=== PATIENT | female | born 1980 | race Caucasian/White ===

== ENCOUNTER 2017-02-08 08:57 | Inpatient (IN) | payer OTHER ==
[2017-02-08 09:33] VITALS: BMI 30.2
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
[2017-02-08] MEDS ORDERED: chlordiazePOXIDE HCL 25 MG CAPSULE PO PRN (15:57)
[2017-02-08] MEDS ORDERED: chlordiazePOXIDE HCL 25 MG CAPSULE PO ONE (15:57)
[2017-02-08] MEDS ORDERED: MAGNESIUM HYDROX 2400MG/30ML ORAL SUSPENSION 30 ML CUP PO PRN (15:57)
[2017-02-08] MEDS ORDERED: NICOTINE POLACRILEX 2 MG GUM BC PRN (15:57)
[2017-02-08] MEDS ORDERED: LOPERAMIDE HCL 2 MG CAPSULE PO PRN (15:57)
[2017-02-08] MEDS ORDERED: ACETAMINOPHEN 325 MG TABLET (FP) PO PRN (15:57)
[2017-02-08] MEDS ORDERED: hydrOXYzine PAMOATE 25 MG CAPSULE (FP) PO PRN (15:57)
[2017-02-08] MEDS ORDERED: MENTHOL/PHENOL 1 EACH UD MM PRN (15:57)
[2017-02-08] MEDS ORDERED: guaiFENesin/D-METHORPHAN HB 10 ML UNIT-DOSE CUPS PO PRN (15:57)
[2017-02-08] MEDS ORDERED: P-EPHED 60MG/TRIPROLIDI 2.5MG TABLET PO PRN (15:57)
[2017-02-08] MEDS ORDERED: MAGNESIUM CITRATE 300 ML BOTTLE PO PRN (15:57)
[2017-02-08] MEDS: chlordiazePOXIDE HCL 25 MG CAPSULE PO SCH ×2 (17:14→22:10)
[2017-02-08] MEDS: NICOTINE 14 MG/24 HOURS TOPICAL PATCH TD SCH (17:18)
[2017-02-08] MEDS: THIAMINE HCL 100 MG TABLET (FP) PO SCH (22:09)
[2017-02-08] MEDS: diphenhydrAMINE HCL 50 MG CAPSULE PO PRN (22:10)
[2017-02-09] MEDS: chlordiazePOXIDE HCL 25 MG CAPSULE PO SCH ×4 (05:16→22:23)
--- NOTE | 2017-02-09 07:40 | CONSULT ---
[facility] Psychiatric Consult - Data Date of interview: 02/09/17 Admission source: [facility] Identifying data: This is 36 years old female with no psychiatric hospitalization history intoxicated with: Alcohol, Cociane, Xanax nad Nicotine Substance Abuse History: - Smoking Cessation. Smoking history: Current every day smoker. Have you smoked in the past 12 months: Yes. Aproximately how many cigarettes per day: 3. Hx Chewing Tobacco Use: No. Initiated information on smoking cessation: Yes. - Substance & Tx. History. Hx Alcohol Use: Yes (VODKA/ BEER). Hx Substance Use: Yes (XANAX/COCAINE). Substance Use Type: Alcohol, Cocaine, Tranquilizers. Hx Substance Use Treatment: No (NEVER BEEN TO DETOX/ REHAB ). - Substances Abused. Cocaine. Route: Smoking. Frequency: Daily. Amount used: $200. Age of first use: 33. Date of Last Use: 02/08/17. Alcohol. Route: Oral. Frequency: Daily. Amount used: 6-7 beers. Age of first use: 36. Date of Last Use: 02/06/17. Alprazolam (Xanax). Route: Oral. Frequency: Daily. Amount used: 4mg. Age of first use: 35. Date of Last Use: 02/06/17 Medical History: Migrain Psychiatric History: Patient reports history of Bipolar disorder, reprots taking prior to admission: Lamictal 100mg poqd Physical/Sexual Abuse/Trauma History: Denies Additional Comment: Lamictal 100mg poqd Mental Status Exam - Mental Status Exam Alert and Oriented to: Person Cognitive Function: Fair Patient Appearance: Well Groomed Mood: Anxious Affect: Mood Congruent Patient Behavior: Cooperative Speech Pattern: Appropriate Voice Loudness: Normal Thought Process: Circumstantial Thought Disorder: Being Controlled Hallucinations: Denies Suicidal Ideation: Denies Homicidal Ideation: Denies Insight/Judgement: Fair Sleep: Difficulty falling asleep Muscle strength/Tone: Mild Hypotonicity Gait/Station: Shuffling Additional Comments: Lamictal 100mg poqd Psychiatric Findings - Problem List ([place] 1, 2,3) (1) Alcohol dependence with uncomplicated withdrawal Current Visit: Yes Status: Acute (2) Cocaine dependence, uncomplicated Current Visit: Yes Status: Acute (3) Nicotine dependence Current Visit: Yes Status: Acute (4) Bipolar disorder Current Visit: Yes Status: Acute - Initial Treatment Plan Initial Treatment Plan: Lamictal 100mg poqd
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
[2017-02-09 10:08] LABS: MCH 28.2 pg (25.7-33.7); MCHC 32.3 g/dl (32.0-36.0); MEAN CELL VOLUME 87.2 fl (80-96); MEAN PLT VOLUME 10.7 fl (7.5-11.1); PLATELET COUNT 308 K/MM3 (134-434); RDW 14.3 % (11.6-15.6); WHITE BLOOD COUNT 10.7 K/mm3 (4.0-10.0)
[2017-02-09 10:35] LABS: ALBUMIN 4.2 g/dl (3.4-5.0); ANION GAP 7 (8-16); CALCIUM 9.3 mg/dL (8.5-10.1); CO2 26 mmol/L (21-32); GLUCOSE,RANDOM 101 mg/dL (74-106)
[2017-02-09] MEDS: PRENATAL VITAMINS W/ FOLIC ACID TABLET (FP) PO SCH (10:35)
[2017-02-09] MEDS: IBUPROFEN 400 MG TABLET (FP) PO PRN (10:36)
[2017-02-09 10:41] LABS: ALK PHOS 84 U/L (45-117); BILIRUBIN,TOTAL 0.6 mg/dL (0.2-1.0); CREATININE 0.9 mg/dL (0.55-1.02); SGOT/AST 13 U/L (15-37); SGPT/ALT 18 U/L (12-78); TOT PROT 7.5 g/dl (6.4-8.2)
[2017-02-09] MEDS: NICOTINE 14 MG/24 HOURS TOPICAL PATCH TD SCH (11:02)
--- NOTE | 2017-02-09 11:34 | EKG ---
Test Reason : Blood Pressure : / mmHG Vent. Rate : 083 BPM Atrial Rate : 083 BPM P-R Int : 138 ms QRS Dur : 078 ms QT Int : 378 ms P-R-T Axes : 040 069 057 degrees QTc Int : 444 ms NORMAL SINUS RHYTHM NORMAL ECG NO PREVIOUS ECGS AVAILABLE Confirmed by KRISTEN LINDA, ELLIOTT ([id number]) on 02/09/2017 11:34:08 AM Referred By: Adiel Peguero Confirmed By:ELLIOTT PETERSON MD
[2017-02-09 11:47] LABS: SICKLE CELL SCREEN NEGATIVE (NEGATIVE)
[2017-02-09] MEDS ORDERED: PNEUMOC 13-VAL CONJ-DIP CRM/PF 0.5 ML DISP.SYRIN IM ONE (12:00)
[2017-02-09] MEDS ORDERED: PNEUMOCOCCAL 23 VACCINE 0.5 ML VIAL IM ONE (12:00)
[2017-02-09 12:14] LABS: HIV 1 & 2 AB NEGATIVE; HIV 1 AGp24 NEGATIVE
[2017-02-09] MEDS: SILVER SULFADIAZINE 1% TOP CREAM 50 GM JAR TP SCH ×2 (12:43→22:23)
[2017-02-09] MEDS: diphenhydrAMINE HCL 50 MG CAPSULE PO PRN (22:22)
[2017-02-09] MEDS: RANITIDINE HCL 150 MG TABLET (FP) PO SCH (22:23)
[2017-02-09] MEDS: THIAMINE HCL 100 MG TABLET (FP) PO SCH (22:23)
[2017-02-09] MEDS: lamoTRIgine 100 MG TABLET (FP) PO SCH (22:23)
[2017-02-10] MEDS: chlordiazePOXIDE HCL 25 MG CAPSULE PO SCH ×2 (05:14→10:36)
[2017-02-10] MEDS: MAG HYDROX/AL HYDROX/SIMETH 30 ML UNIT-DOSE CUP PO PRN (05:15)
[2017-02-10] MEDS: IBUPROFEN 400 MG TABLET (FP) PO PRN (05:15)
[2017-02-10 10:04] LABS: URINE APPEARANCE CLEAR; URINE BILIRUBIN NEGATIVE (NEGATIVE); URINE BLOOD NEGATIVE (NEGATIVE); URINE COLOR LTYELLOW; URINE GLUCOSE (UA) NEGATIVE (NEGATIVE); URINE KETONE NEGATIVE (NEGATIVE); URINE LEUK ESTERASE NEGATIVE (NEGATIVE); URINE NITRITE NEGATIVE (NEGATIVE); URINE PROTEIN NEGATIVE (NEGATIVE); URINE UROBILINOGEN NEGATIVE mg/dL (0.2-1.0)
[2017-02-10] MEDS: PRENATAL VITAMINS W/ FOLIC ACID TABLET (FP) PO SCH (10:36)
[2017-02-10] MEDS: SILVER SULFADIAZINE 1% TOP CREAM 50 GM JAR TP SCH ×2 (10:36→22:12)
[2017-02-10] MEDS: RANITIDINE HCL 150 MG TABLET (FP) PO SCH ×2 (10:36→22:10)
[2017-02-10] MEDS: NICOTINE 14 MG/24 HOURS TOPICAL PATCH TD SCH (10:37)
[2017-02-10] MEDS ORDERED: ALBUTEROL SO4 6.7 GM HFA INHALER IH PRN (11:38)
[2017-02-10] MEDS ORDERED: IBUPROFEN 400 MG TABLET (FP) PO PRN (11:57)
--- NOTE | 2017-02-10 11:57 | PN ---
S CIWA - CIWA Score Nausea/Vomitin-No Nausea/No Vomiting Muscle Tremors: 4-Moderate,w/Arms Extend Anxiety: 3 Agitation: 4-Moderately Restless Paroxysmal Sweats: 3 Orientation: 0-Oriented Tacttile Disturbances: 0-None Auditory Disturbances: 0-None Visual Disturbances: 0-None Headache: 0-None Present CIWA-Ar Total Score: 14 BHS Progress Note (SOAP) Subjective: interrupted sleep anxiety sweats shakes I have a very fishy/smelling vaginal odor and discharge back pain I need my asthma pump I suffer from migraine headaches Objective: 02/10/17 11:54 Vital Signs Temperature 98.8 F 02/10/17 10:02 Pulse Rate 83 02/10/17 10:02 Respiratory Rate 18 02/10/17 10:02 Blood Pressure 127/76 02/10/17 10:02 O2 Sat by Pulse Oximetry (%) Laboratory Tests 02/09/17 02/09/17 02/09/17 06:00 06:00 06:00 WBC 10.7 H RBC 4.51 Hgb 12.7 Hct 39.4 MCV 87.2 MCH 28.2 MCHC 32.3 RDW 14.3 Plt Count 308 MPV 10.7 Sickle Cell Screen Negative Sodium 140 Potassium 4.0 Chloride 107 Carbon Dioxide 26 Anion Gap 7 L BUN 15 Creatinine 0.9 Creat Clearance w eGFR > 60 Random Glucose 101 Calcium 9.3 Total Bilirubin 0.6 AST 13 L ALT 18 Alkaline Phosphatase 84 Total Protein 7.5 Albumin 4.2 Urine Color Urine Appearance Urine pH Urine Protein Urine Glucose (UA) Urine Ketones Urine Blood Urine Nitrite Urine Bilirubin Urine Urobilinogen Ur Leukocyte Esterase HIV 1&2 Antibody Screen Negative HIV P24 Antigen Negative 02/10/17 08:00 WBC RBC Hgb Hct MCV MCH MCHC RDW Plt Count MPV Sickle Cell Screen Sodium Potassium Chloride Carbon Dioxide Anion Gap BUN Creatinine Creat Clearance w eGFR Random Glucose Calcium Total Bilirubin AST ALT Alkaline Phosphatase Total Protein Albumin Urine Color Ltyellow Urine Appearance Clear Urine pH 6.0 Urine Protein Negative Urine Glucose (UA) Negative Urine Ketones Negative Urine Blood Negative Urine Nitrite Negative Urine Bilirubin Negative Urine Urobilinogen Negative Ur Leukocyte Esterase Negative HIV 1&2 Antibody Screen HIV P24 Antigen awake/alert ambulating no acute distress Assessment: 02/10/17 11:54 withdrawal sx Plan: continue detox increase fluids imetrex 50mg x one motrin 800mg prn lidocaine patch flagyl 500mg bid albuterol pump IH ordered
[2017-02-10] MEDS: metroNIDAZOLE 250 MG TABLET PO SCH ×2 (12:43→22:10)
[2017-02-10] MEDS: LIDOCAINE 5% TOPICAL PATCH TP SCH (12:43)
[2017-02-10] MEDS ORDERED: SUMAtriptan SUCCINATE 50 MG TABLET PO ONE (12:45)
[2017-02-10] MEDS: chlordiazePOXIDE 5 MG CAPSULE PO SCH ×2 (17:31→22:10)
[2017-02-10] MEDS: THIAMINE HCL 100 MG TABLET (FP) PO SCH (22:10)
[2017-02-10] MEDS: lamoTRIgine 100 MG TABLET (FP) PO SCH (22:10)
[2017-02-10] MEDS: LIDOCAINE PATCH REMOVAL MC SCH (22:11)
[2017-02-11] MEDS: diphenhydrAMINE HCL 50 MG CAPSULE PO PRN ×2 (00:38→22:23)
[2017-02-11] MEDS: chlordiazePOXIDE 5 MG CAPSULE PO SCH ×2 (05:31→10:47)
[2017-02-11] MEDS: PRENATAL VITAMINS W/ FOLIC ACID TABLET (FP) PO SCH (10:46)
[2017-02-11] MEDS: metroNIDAZOLE 250 MG TABLET PO SCH ×2 (10:46→22:21)
[2017-02-11] MEDS: RANITIDINE HCL 150 MG TABLET (FP) PO SCH ×2 (10:46→22:22)
[2017-02-11] MEDS: SILVER SULFADIAZINE 1% TOP CREAM 50 GM JAR TP SCH ×2 (10:47→22:22)
[2017-02-11] MEDS: NICOTINE 14 MG/24 HOURS TOPICAL PATCH TD SCH (10:47)
[2017-02-11] MEDS: LIDOCAINE 5% TOPICAL PATCH TP SCH (10:47)
--- NOTE | 2017-02-11 12:02 | PN ---
BHS Progress Note (SOAP) Subjective: interrupted sleep sweats Objective: 02/11/17 12:01 Vital Signs Temperature 98.8 F 02/11/17 10:37 Pulse Rate 95 H 02/11/17 10:37 Respiratory Rate 18 02/11/17 10:37 Blood Pressure 122/76 02/11/17 10:37 O2 Sat by Pulse Oximetry (%) awake/alert ambulating no acute distress Assessment: 02/11/17 12:02 withdrawal sx Plan: continue detox d/c in am
[2017-02-11] MEDS: MAG HYDROX/AL HYDROX/SIMETH 30 ML UNIT-DOSE CUP PO PRN (16:12)
[2017-02-11] MEDS: chlordiazePOXIDE HCL 10 MG CAPSULE PO SCH ×2 (17:21→22:21)
[2017-02-11] MEDS: THIAMINE HCL 100 MG TABLET (FP) PO SCH (22:21)
[2017-02-11] MEDS: lamoTRIgine 100 MG TABLET (FP) PO SCH (22:22)
[2017-02-11] MEDS: LIDOCAINE PATCH REMOVAL MC SCH (23:42)
[2017-02-12] MEDS: chlordiazePOXIDE HCL 10 MG CAPSULE PO SCH ×2 (07:02→10:18)
--- NOTE | 2017-02-12 10:05 | PN ---
S Progress Note (SOAP) Subjective: alert,no complaint,histoyr of fall this morning Objective: 02/12/17 10:03 Vital Signs Temperature 98.2 F 02/12/17 08:10 Pulse Rate 80 02/12/17 08:10 Respiratory Rate 18 02/12/17 08:10 Blood Pressure 107/56 02/12/17 08:10 O2 Sat by Pulse Oximetry (%) Assessment: 02/12/17 10:03 detox completed,no withdrawal symptom Plan: stable for discharge to rehab today,continue fall protocol 2 in rehab
--- NOTE | 2017-02-12 10:11 | DS ---
[facility] Detox Discharge Summary Admission Date: 02/08/17 Discharge Date: 02/12/17 - History Present History: Alcohol Dependence, Cocaine Dependence Additional Comments: follow up with [facility] as arrangement,continue fall protocol 2 in rehab Pertinent Past History: history of migraine bipolar disorder - Physical Exam Results Vital Signs: Vital Signs Temperature 98.2 F 02/12/17 08:10 Pulse Rate 80 02/12/17 08:10 Respiratory Rate 18 02/12/17 08:10 Blood Pressure 107/56 02/12/17 08:10 O2 Sat by Pulse Oximetry (%) Pertinent Admission Physical Exam Findings: withdrawal symptom - Treatment Hospital Course: Detox Protocol Followed, Detoxed Safely, Responded well, Discharged Condition Good, Rehab Referral Accepted Patient has Accepted a Rehab Referral to: c[facility] - Medication Discharge Medications: Ambulatory Orders Lamotrigine [LaMICtal -] 100 mg PO HS #30 tablet 02/09/17 - Diagnosis (1) Bipolar disorder Current Visit: Yes Status: Acute (2) Nicotine dependence Current Visit: Yes Status: Acute Qualifiers: Nicotine product type: cigarettes Substance use status: uncomplicated Qualified Code(s): F17.210 - Nicotine dependence, cigarettes, uncomplicated (3) Alcohol dependence with uncomplicated withdrawal Current Visit: Yes Status: Chronic (4) Cocaine dependence, uncomplicated Current Visit: Yes Status: Chronic (5) Hx of migraine headaches Current Visit: Yes Status: Chronic - AMA Did Patient Leave Against Medical Advice: No
[2017-02-12] MEDS: RANITIDINE HCL 150 MG TABLET (FP) PO SCH (10:15)
[2017-02-12] MEDS: metroNIDAZOLE 250 MG TABLET PO SCH (10:16)
[2017-02-12] MEDS: PRENATAL VITAMINS W/ FOLIC ACID TABLET (FP) PO SCH (10:16)
[2017-02-12] MEDS: SILVER SULFADIAZINE 1% TOP CREAM 50 GM JAR TP SCH (10:19)
[2017-02-12] MEDS: LIDOCAINE 5% TOPICAL PATCH TP SCH (10:19)
[2017-02-12] MEDS: NICOTINE 14 MG/24 HOURS TOPICAL PATCH TD SCH (10:19)
[2017-02-12 10:48] VITALS: BP 127/66; PULSE 78; TEMP 98.8
== END 2017-02-12 12:07 | disposition other institution (70) | DRG 774 ==
LOC: YASAS 08:57 → Y6N 13:36
PROVIDERS: ADMIT Internal Medicine; ATTEND Internal Medicine
PROC: HZ2ZZZZ Detoxification Services for Substance Abuse Treatment (ICD-10-PCS; principal; 2017-02-12)
DX: F10.230 Alcohol dependence with withdrawal, uncomplicated (principal); F14.20 Cocaine dependence, uncomplicated; F17.210 Nicotine dependence, cigarettes, uncomplicated; F31.9 Bipolar disorder, unspecified; G43.909 Migraine, unspecified, not intractable, without status migrainosus
CPT/HCPCS: 36415; 80053; 81003; 85027; 85660; 86593; 87389; 90732; 93005; 93010; G0009

== ENCOUNTER 2017-02-12 12:28 | Inpatient (IN) | payer OTHER ==
[2017-02-12] MEDS ORDERED: guaiFENesin/D-METHORPHAN HB 10 ML UNIT-DOSE CUPS PO PRN (13:30)
[2017-02-12] MEDS ORDERED: LOPERAMIDE HCL 2 MG CAPSULE PO PRN (13:30)
[2017-02-12] MEDS ORDERED: MAGNESIUM HYDROX 2400MG/30ML ORAL SUSPENSION 30 ML CUP PO PRN (13:30)
[2017-02-12] MEDS ORDERED: hydrOXYzine PAMOATE 50 MG CAPSULE (FP) PO PRN (13:30)
[2017-02-12] MEDS ORDERED: ACETAMINOPHEN 325 MG TABLET (FP) PO PRN (13:30)
[2017-02-12] MEDS ORDERED: MAG HYDROX/AL HYDROX/SIMETH 30 ML UNIT-DOSE CUP PO PRN (13:30)
[2017-02-12] MEDS ORDERED: P-EPHED 60MG/TRIPROLIDI 2.5MG TABLET PO PRN (13:30)
[2017-02-12] MEDS ORDERED: MAGNESIUM CITRATE 300 ML BOTTLE PO PRN (13:30)
[2017-02-12] MEDS ORDERED: IBUPROFEN 400 MG TABLET (FP) PO PRN (13:30)
[2017-02-12] MEDS: lamoTRIgine 100 MG TABLET (FP) PO SCH (21:26)
[2017-02-12] MEDS: LIDOCAINE PATCH REMOVAL MC SCH (21:26)
[2017-02-12] MEDS: metroNIDAZOLE 250 MG TABLET PO SCH (21:26)
[2017-02-12] MEDS: MIRTAZAPINE 15 MG TABLET (FP) PO SCH (21:27)
[2017-02-12] MEDS: QUEtiapine FUMARATE 100 MG TABLET (FP) PO SCH (21:27)
[2017-02-12] MEDS: SILVER SULFADIAZINE 1% TOP CREAM 50 GM JAR TP SCH (21:27)
[2017-02-12] MEDS: THIAMINE HCL 100 MG TABLET (FP) PO SCH (21:28)
[2017-02-12] MEDS: RANITIDINE HCL 150 MG TABLET (FP) PO SCH (21:28)
[2017-02-12] MEDS ORDERED: PATIENT'S OWN MEDICATION (NON-FORMULARY) (Metronidazole [Flagyl -] 500 MG) PO SCH (22:00)
[2017-02-12] MEDS ORDERED: diphenhydrAMINE HCL 50 MG CAPSULE PO PRN (22:00)
[2017-02-13] MEDS: metroNIDAZOLE 250 MG TABLET PO SCH ×2 (09:41→21:18)
[2017-02-13] MEDS: LIDOCAINE 5% TOPICAL PATCH TP SCH (09:41)
[2017-02-13] MEDS: PRENATAL VITAMINS W/ FOLIC ACID TABLET (FP) PO SCH (09:42)
[2017-02-13] MEDS: NICOTINE 14 MG/24 HOURS TOPICAL PATCH TD SCH (09:42)
[2017-02-13] MEDS: RANITIDINE HCL 150 MG TABLET (FP) PO SCH ×2 (09:42→21:19)
[2017-02-13] MEDS: SILVER SULFADIAZINE 1% TOP CREAM 50 GM JAR TP SCH ×2 (09:43→21:20)
[2017-02-13] MEDS ORDERED: LIDOCAINE 5% TOPICAL PATCH TP SCH (10:00)
[2017-02-13 17:19] VITALS: BMI 31.8
[2017-02-13] MEDS: QUEtiapine FUMARATE 100 MG TABLET (FP) PO SCH (21:18)
[2017-02-13] MEDS: lamoTRIgine 100 MG TABLET (FP) PO SCH (21:18)
[2017-02-13] MEDS: MIRTAZAPINE 15 MG TABLET (FP) PO SCH (21:19)
[2017-02-13] MEDS: THIAMINE HCL 100 MG TABLET (FP) PO SCH (21:19)
[2017-02-13] MEDS: LIDOCAINE PATCH REMOVAL MC SCH (21:20)
[2017-02-14] MEDS ORDERED: PT OWN MED DRAWER 7, Y5N ONE (08:26)
[2017-02-14] MEDS: NICOTINE 14 MG/24 HOURS TOPICAL PATCH TD SCH (09:58)
[2017-02-14] MEDS: metroNIDAZOLE 250 MG TABLET PO SCH ×2 (09:58→21:32)
[2017-02-14] MEDS: PRENATAL VITAMINS W/ FOLIC ACID TABLET (FP) PO SCH (09:58)
[2017-02-14] MEDS: SILVER SULFADIAZINE 1% TOP CREAM 50 GM JAR TP SCH ×2 (09:58→21:34)
[2017-02-14] MEDS: LIDOCAINE 5% TOPICAL PATCH TP SCH (09:58)
[2017-02-14] MEDS: RANITIDINE HCL 150 MG TABLET (FP) PO SCH ×2 (09:58→21:34)
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
--- NOTE | 2017-02-14 11:57 | PN ---
S Progress Note (SOAP) Subjective: c/o migraine headaches and requesting ensure - has lost 20 lbs and has headaches /migraine but nurse reports has not used tylenol or motrin. Objective: 02/14/17 11:53 Vital Signs - 8 hr 02/14/17 06:54 Temperature 98.1 F Pulse Rate 91 H Respiratory 18 Rate Blood Pressure 113/74 Assessment: 02/14/17 11:54 discussed healthy weight and eating habits, no need for ensure at this time. migraine, will use tylenol and motrin to test for efficacy, if not adequate will revisit. taking lidoderm patch for back pain will start naprosyn 500mg bid which may help with migraine Plan: f/u 1 week. will d/c asthma pump as she does not have asthma was used when she was using tobacco and illicit substances.
[2017-02-14] MEDS: GABAPENTIN 300 MG CAPSULE (FP) PO SCH ×2 (13:53→21:31)
[2017-02-14] MEDS: MAG HYDROX/AL HYDROX/SIMETH 30 ML UNIT-DOSE CUP PO SCH ×2 (15:39→18:30)
[2017-02-14] MEDS: NAPROXEN 500 MG TABLET (FP) PO SCH ×2 (15:39→21:32)
[2017-02-14] MEDS: PANTOPRAZOLE 40 MG TABLET (FP) PO SCH (15:42)
[2017-02-14] MEDS: THIAMINE HCL 100 MG TABLET (FP) PO SCH (21:31)
[2017-02-14] MEDS: QUEtiapine FUMARATE 100 MG TABLET (FP) PO SCH (21:31)
[2017-02-14] MEDS: MIRTAZAPINE 15 MG TABLET (FP) PO SCH (21:31)
[2017-02-14] MEDS: lamoTRIgine 100 MG TABLET (FP) PO SCH (21:32)
[2017-02-14] MEDS: LIDOCAINE PATCH REMOVAL MC SCH (21:33)
[2017-02-15] MEDS: MAG HYDROX/AL HYDROX/SIMETH 30 ML UNIT-DOSE CUP PO SCH ×4 (02:21→18:35)
[2017-02-15] MEDS: GABAPENTIN 300 MG CAPSULE (FP) PO SCH ×3 (06:49→21:48)
[2017-02-15] MEDS: PRENATAL VITAMINS W/ FOLIC ACID TABLET (FP) PO SCH (10:23)
[2017-02-15] MEDS: SILVER SULFADIAZINE 1% TOP CREAM 50 GM JAR TP SCH ×2 (10:23→21:50)
[2017-02-15] MEDS: metroNIDAZOLE 250 MG TABLET PO SCH ×2 (10:24→21:48)
[2017-02-15] MEDS: NAPROXEN 500 MG TABLET (FP) PO SCH ×2 (10:24→21:48)
[2017-02-15] MEDS: NICOTINE 14 MG/24 HOURS TOPICAL PATCH TD SCH (10:24)
[2017-02-15] MEDS: PANTOPRAZOLE 40 MG TABLET (FP) PO SCH (10:24)
[2017-02-15] MEDS: RANITIDINE HCL 150 MG TABLET (FP) PO SCH ×2 (10:24→21:48)
[2017-02-15] MEDS: LIDOCAINE 5% TOPICAL PATCH TP SCH (10:25)
[2017-02-15] MEDS: ALBUTEROL SO4 6.7 GM HFA INHALER IH PRN (13:31)
[2017-02-15] MEDS: QUEtiapine FUMARATE 100 MG TABLET (FP) PO SCH (21:48)
[2017-02-15] MEDS: MIRTAZAPINE 15 MG TABLET (FP) PO SCH (21:48)
[2017-02-15] MEDS: THIAMINE HCL 100 MG TABLET (FP) PO SCH (21:48)
[2017-02-15] MEDS: lamoTRIgine 100 MG TABLET (FP) PO SCH (21:48)
[2017-02-15] MEDS: LIDOCAINE PATCH REMOVAL MC SCH (21:50)
[2017-02-16] MEDS: MAG HYDROX/AL HYDROX/SIMETH 30 ML UNIT-DOSE CUP PO SCH (00:18)
[2017-02-16] MEDS ORDERED: MAG HYDROX/AL HYDROX/SIMETH 30 ML UNIT-DOSE CUP PO PRN (00:29)
[2017-02-16] MEDS: GABAPENTIN 300 MG CAPSULE (FP) PO SCH ×3 (06:30→21:40)
[2017-02-16] MEDS: NICOTINE 14 MG/24 HOURS TOPICAL PATCH TD SCH (10:18)
[2017-02-16] MEDS: PANTOPRAZOLE 40 MG TABLET (FP) PO SCH (10:19)
[2017-02-16] MEDS: SILVER SULFADIAZINE 1% TOP CREAM 50 GM JAR TP SCH ×2 (10:19→21:42)
[2017-02-16] MEDS: metroNIDAZOLE 250 MG TABLET PO SCH ×2 (10:19→21:40)
[2017-02-16] MEDS: PRENATAL VITAMINS W/ FOLIC ACID TABLET (FP) PO SCH (10:19)
[2017-02-16] MEDS: LIDOCAINE 5% TOPICAL PATCH TP SCH (10:20)
[2017-02-16] MEDS: RANITIDINE HCL 150 MG TABLET (FP) PO SCH ×2 (10:20→21:41)
[2017-02-16] MEDS: NAPROXEN 500 MG TABLET (FP) PO SCH ×2 (10:20→21:40)
[2017-02-16] MEDS: MENTHOL/PHENOL 1 EACH UD MM PRN (12:53)
[2017-02-16] MEDS: QUEtiapine FUMARATE 100 MG TABLET (FP) PO SCH (21:40)
[2017-02-16] MEDS: MIRTAZAPINE 15 MG TABLET (FP) PO SCH (21:40)
[2017-02-16] MEDS: lamoTRIgine 100 MG TABLET (FP) PO SCH (21:40)
[2017-02-16] MEDS: THIAMINE HCL 100 MG TABLET (FP) PO SCH (21:40)
[2017-02-16] MEDS: LIDOCAINE PATCH REMOVAL MC SCH (21:42)
[2017-02-17] MEDS: GABAPENTIN 300 MG CAPSULE (FP) PO SCH ×3 (06:13→21:33)
[2017-02-17] MEDS: LIDOCAINE 5% TOPICAL PATCH TP SCH (09:54)
[2017-02-17] MEDS: metroNIDAZOLE 250 MG TABLET PO SCH ×2 (09:54→21:33)
[2017-02-17] MEDS: NAPROXEN 500 MG TABLET (FP) PO SCH (09:55)
[2017-02-17] MEDS: PANTOPRAZOLE 40 MG TABLET (FP) PO SCH (09:55)
[2017-02-17] MEDS: RANITIDINE HCL 150 MG TABLET (FP) PO SCH ×2 (09:55→21:32)
[2017-02-17] MEDS: NICOTINE 14 MG/24 HOURS TOPICAL PATCH TD SCH (09:56)
[2017-02-17] MEDS: PRENATAL VITAMINS W/ FOLIC ACID TABLET (FP) PO SCH (09:56)
[2017-02-17] MEDS: SILVER SULFADIAZINE 1% TOP CREAM 50 GM JAR TP SCH ×2 (09:57→21:32)
[2017-02-17] MEDS: MENTHOL/PHENOL 1 EACH UD MM PRN (10:02)
[2017-02-17] MEDS ORDERED: hydrOXYzine PAMOATE 50 MG CAPSULE (FP) PO PRN (11:45)
--- NOTE | 2017-02-17 11:45 | PN ---
S Progress Note (SOAP) Subjective: c/o sore throat, dry mouth x 3 days, no relief from naprowen, denies fever rigor chills or cough or SOb Objective: 02/17/17 11:43 Vital Signs - 8 hr 02/17/17 06:44 Temperature 97.9 F Pulse Rate 80 Respiratory 18 Rate Blood Pressure 112/75 throat swab for c and s to be sent Assessment: 02/17/17 11:44 viral pharyngitis, r/o strep throat Plan: cont naproxen, water at bedside, requesting biotene from pharmacy, cont vistaril ,
[2017-02-17] MEDS ORDERED: LYTES/YERBA SANTA 240 ML BOTTLE MM SCH (12:30)
[2017-02-17] MEDS: LYTES/YERBA SANTA 240 ML BOTTLE MM SCH (17:45)
[2017-02-17] MEDS: THIAMINE HCL 100 MG TABLET (FP) PO SCH (21:32)
[2017-02-17] MEDS: QUEtiapine FUMARATE 100 MG TABLET (FP) PO SCH (21:33)
[2017-02-17] MEDS: lamoTRIgine 100 MG TABLET (FP) PO SCH (21:33)
[2017-02-17] MEDS: LIDOCAINE PATCH REMOVAL MC SCH (21:34)
[2017-02-17] MEDS: MIRTAZAPINE 15 MG TABLET (FP) PO SCH (21:34)
[2017-02-18] MEDS: GABAPENTIN 300 MG CAPSULE (FP) PO SCH ×3 (06:31→21:42)
[2017-02-18] MEDS ORDERED: PT OWN MED DRAWER 7, Y5N ONE ×3 (08:58→19:46)
[2017-02-18] MEDS: RANITIDINE HCL 150 MG TABLET (FP) PO SCH ×2 (10:30→21:42)
[2017-02-18] MEDS: metroNIDAZOLE 250 MG TABLET PO SCH ×2 (10:30→21:42)
[2017-02-18] MEDS: LIDOCAINE 5% TOPICAL PATCH TP SCH (10:30)
[2017-02-18] MEDS: PANTOPRAZOLE 40 MG TABLET (FP) PO SCH (10:30)
[2017-02-18] MEDS: PRENATAL VITAMINS W/ FOLIC ACID TABLET (FP) PO SCH (10:30)
[2017-02-18] MEDS: NICOTINE 14 MG/24 HOURS TOPICAL PATCH TD SCH (10:31)
[2017-02-18] MEDS: LYTES/YERBA SANTA 240 ML BOTTLE MM SCH ×3 (10:31→21:41)
[2017-02-18] MEDS: SILVER SULFADIAZINE 1% TOP CREAM 50 GM JAR TP SCH ×2 (10:32→21:44)
--- NOTE | 2017-02-18 14:37 | HP ---
Psychiatrist Admission - Data Date of interview: 02/18/17 Admission source: [address] [place] [address] Identifying data: This is the first admission to [address] [place] [address] for this 36 years old H single mother of 5 (youngest daughter 15 yo resides with her father).patient resides alone (renting room),supported by PA. Medical History: Low back pain,Migraine headache. Vital Signs: Vital Signs - 24 hr 02/18/17 02/18/17 02/18/17 00:30 03:30 07:05 Temperature 97.9 F Pulse Rate 81 Respiratory 18 18 18 Rate Blood Pressure 130/78 Allergies/Adverse Reactions: Allergies Allergy/AdvReac Type Severity Reaction Status Date / Time No Known Allergies Allergy Verified 02/08/17 13:46 - Substance Abuse/Tx History Hx Alcohol Use: Yes Hx Substance Use: Yes Substance Use Type: Alcohol, Cocaine Hx Substance Use Treatment: Yes - Admission Criteria Previous failed treatment: Yes Poor recovery environment: Yes Comorbidities: Yes Lacks judgement: Yes Mental Status Exam - Mental Status Exam Alert and Oriented to: Time, Place, Person Cognitive Function: Grossly Intact Patient Appearance: Well Groomed Mood: Anxious Affect: Mood Congruent, Labile Patient Behavior: Cooperative Speech Pattern: Clear Voice Loudness: Normal Thought Process: Goal Oriented Thought Disorder: Not Present Hallucinations: Denies Suicidal Ideation: Denies Homicidal Ideation: Denies Insight/Judgement: Fair Sleep: Fair Appetite: Fair Muscle strength/Tone: Normal Gait/Station: Normal Psychiatric Findings - Problem List ([place] 1, 2,3) (1) Drug-induced mood disorder Current Visit: Yes Status: Chronic (2) Bipolar disorder Current Visit: Yes Status: Chronic (3) Nicotine dependence Current Visit: Yes Status: Chronic Qualifiers: Nicotine product type: cigarettes Substance use status: uncomplicated Qualified Code(s): F17.210 - Nicotine dependence, cigarettes, uncomplicated (4) Hx of migraine headaches Current Visit: Yes Status: Chronic - Initial Treatment Plan Initial Treatment Plan: Will monitor progress.
[2017-02-18] MEDS: COLLOIDAL OATMEAL 1 BAR EACH TP PRN (16:01)
[2017-02-18] MEDS: THIAMINE HCL 100 MG TABLET (FP) PO SCH (21:42)
[2017-02-18] MEDS: lamoTRIgine 100 MG TABLET (FP) PO SCH (21:42)
[2017-02-18] MEDS: QUEtiapine FUMARATE 100 MG TABLET (FP) PO SCH (21:42)
[2017-02-18] MEDS: LIDOCAINE PATCH REMOVAL MC SCH (22:19)
[2017-02-19] MEDS ORDERED: PT OWN MED DRAWER 7, Y5N ONE ×2 (06:01→07:23)
[2017-02-19] MEDS: GABAPENTIN 300 MG CAPSULE (FP) PO SCH ×3 (06:59→21:46)
[2017-02-19] MEDS: LYTES/YERBA SANTA 240 ML BOTTLE MM SCH ×3 (06:59→21:48)
[2017-02-19] MEDS: PANTOPRAZOLE 40 MG TABLET (FP) PO SCH (10:04)
[2017-02-19] MEDS: RANITIDINE HCL 150 MG TABLET (FP) PO SCH ×2 (10:04→21:49)
[2017-02-19] MEDS: metroNIDAZOLE 250 MG TABLET PO SCH ×2 (10:04→21:47)
[2017-02-19] MEDS: PRENATAL VITAMINS W/ FOLIC ACID TABLET (FP) PO SCH (10:04)
[2017-02-19] MEDS: LIDOCAINE 5% TOPICAL PATCH TP SCH (10:05)
[2017-02-19] MEDS: SILVER SULFADIAZINE 1% TOP CREAM 50 GM JAR TP SCH ×2 (10:05→21:49)
[2017-02-19] MEDS: NICOTINE 14 MG/24 HOURS TOPICAL PATCH TD SCH (10:05)
[2017-02-19] MEDS: QUEtiapine FUMARATE 100 MG TABLET (FP) PO SCH (21:46)
[2017-02-19] MEDS: lamoTRIgine 100 MG TABLET (FP) PO SCH (21:46)
[2017-02-19] MEDS: THIAMINE HCL 100 MG TABLET (FP) PO SCH (21:46)
[2017-02-19] MEDS: LIDOCAINE PATCH REMOVAL MC SCH (21:47)
[2017-02-20] MEDS ORDERED: PT OWN MED DRAWER 7, Y5N ONE ×3 (05:35→14:19)
[2017-02-20] MEDS: LYTES/YERBA SANTA 240 ML BOTTLE MM SCH ×3 (06:30→21:32)
[2017-02-20] MEDS: GABAPENTIN 300 MG CAPSULE (FP) PO SCH ×3 (06:30→21:32)
[2017-02-20] MEDS: PANTOPRAZOLE 40 MG TABLET (FP) PO SCH (10:11)
[2017-02-20] MEDS: RANITIDINE HCL 150 MG TABLET (FP) PO SCH ×2 (10:11→21:32)
[2017-02-20] MEDS: SILVER SULFADIAZINE 1% TOP CREAM 50 GM JAR TP SCH ×2 (10:11→21:33)
[2017-02-20] MEDS: PRENATAL VITAMINS W/ FOLIC ACID TABLET (FP) PO SCH (10:11)
[2017-02-20] MEDS: LIDOCAINE 5% TOPICAL PATCH TP SCH (10:13)
[2017-02-20] MEDS: NICOTINE 14 MG/24 HOURS TOPICAL PATCH TD SCH (10:13)
[2017-02-20] MEDS: lamoTRIgine 100 MG TABLET (FP) PO SCH (21:32)
[2017-02-20] MEDS: QUEtiapine FUMARATE 100 MG TABLET (FP) PO SCH (21:32)
[2017-02-20] MEDS: THIAMINE HCL 100 MG TABLET (FP) PO SCH (21:32)
[2017-02-20] MEDS: LIDOCAINE PATCH REMOVAL MC SCH (21:33)
[2017-02-21] MEDS ORDERED: PT OWN MED DRAWER 7, Y5N ONE ×2 (03:26→20:21)
[2017-02-21] MEDS: GABAPENTIN 300 MG CAPSULE (FP) PO SCH ×3 (06:16→21:34)
[2017-02-21] MEDS: LYTES/YERBA SANTA 240 ML BOTTLE MM SCH ×3 (06:16→22:18)
[2017-02-21] MEDS: LIDOCAINE 5% TOPICAL PATCH TP SCH (10:06)
[2017-02-21] MEDS: PANTOPRAZOLE 40 MG TABLET (FP) PO SCH (10:07)
[2017-02-21] MEDS: RANITIDINE HCL 150 MG TABLET (FP) PO SCH ×2 (10:07→21:34)
[2017-02-21] MEDS: PRENATAL VITAMINS W/ FOLIC ACID TABLET (FP) PO SCH (10:07)
[2017-02-21] MEDS: NICOTINE 14 MG/24 HOURS TOPICAL PATCH TD SCH (10:07)
[2017-02-21] MEDS: SILVER SULFADIAZINE 1% TOP CREAM 50 GM JAR TP SCH ×2 (10:08→21:35)
[2017-02-21] MEDS: QUEtiapine FUMARATE 100 MG TABLET (FP) PO SCH (21:34)
[2017-02-21] MEDS: lamoTRIgine 100 MG TABLET (FP) PO SCH (21:34)
[2017-02-21] MEDS: THIAMINE HCL 100 MG TABLET (FP) PO SCH (21:34)
[2017-02-21] MEDS: LIDOCAINE PATCH REMOVAL MC SCH (22:18)
[2017-02-22] MEDS: GABAPENTIN 300 MG CAPSULE (FP) PO SCH ×3 (06:21→21:32)
[2017-02-22] MEDS: LYTES/YERBA SANTA 240 ML BOTTLE MM SCH ×3 (06:21→21:32)
[2017-02-22] MEDS ORDERED: PT OWN MED DRAWER 7, Y5N ONE ×3 (06:38→14:53)
[2017-02-22] MEDS: NICOTINE 14 MG/24 HOURS TOPICAL PATCH TD SCH (10:27)
[2017-02-22] MEDS: LIDOCAINE 5% TOPICAL PATCH TP SCH (10:27)
[2017-02-22] MEDS: PRENATAL VITAMINS W/ FOLIC ACID TABLET (FP) PO SCH (10:27)
[2017-02-22] MEDS: PANTOPRAZOLE 40 MG TABLET (FP) PO SCH (10:27)
[2017-02-22] MEDS: RANITIDINE HCL 150 MG TABLET (FP) PO SCH ×2 (10:27→21:32)
[2017-02-22] MEDS: SILVER SULFADIAZINE 1% TOP CREAM 50 GM JAR TP SCH ×2 (10:28→21:33)
[2017-02-22] MEDS: ALBUTEROL SO4 6.7 GM HFA INHALER IH PRN (10:29)
[2017-02-22] MEDS: BENZOYL PEROXIDE 5% 60 GM GEL..GRAM. TP SCH ×2 (14:52→21:31)
[2017-02-22] MEDS: QUEtiapine FUMARATE 100 MG TABLET (FP) PO SCH (21:31)
[2017-02-22] MEDS: THIAMINE HCL 100 MG TABLET (FP) PO SCH (21:32)
[2017-02-22] MEDS: lamoTRIgine 100 MG TABLET (FP) PO SCH (21:32)
[2017-02-22] MEDS: LIDOCAINE PATCH REMOVAL MC SCH (21:33)
[2017-02-23] MEDS: LYTES/YERBA SANTA 240 ML BOTTLE MM SCH ×3 (06:21→21:32)
[2017-02-23] MEDS: GABAPENTIN 300 MG CAPSULE (FP) PO SCH ×3 (06:21→21:31)
[2017-02-23] MEDS ORDERED: PT OWN MED DRAWER 7, Y5N ONE (08:29)
[2017-02-23] MEDS: BENZOYL PEROXIDE 5% 60 GM GEL..GRAM. TP SCH ×2 (10:16→21:32)
[2017-02-23] MEDS: SILVER SULFADIAZINE 1% TOP CREAM 50 GM JAR TP SCH ×2 (10:16→21:32)
[2017-02-23] MEDS: PRENATAL VITAMINS W/ FOLIC ACID TABLET (FP) PO SCH (10:16)
[2017-02-23] MEDS: LIDOCAINE 5% TOPICAL PATCH TP SCH (10:17)
[2017-02-23] MEDS: RANITIDINE HCL 150 MG TABLET (FP) PO SCH ×2 (10:17→21:31)
[2017-02-23] MEDS: PANTOPRAZOLE 40 MG TABLET (FP) PO SCH (10:17)
[2017-02-23] MEDS: NAPROXEN 500 MG TABLET (FP) PO PRN ×2 (13:21→21:31)
[2017-02-23] MEDS: lamoTRIgine 25 MG TABLET PO SCH ×2 (17:20→21:31)
[2017-02-23] MEDS: QUEtiapine FUMARATE 100 MG TABLET (FP) PO SCH (21:31)
[2017-02-23] MEDS: THIAMINE HCL 100 MG TABLET (FP) PO SCH (21:31)
[2017-02-23] MEDS: LIDOCAINE PATCH REMOVAL MC SCH (21:32)
[2017-02-24] MEDS: LYTES/YERBA SANTA 240 ML BOTTLE MM SCH ×3 (06:16→21:22)
[2017-02-24] MEDS: GABAPENTIN 300 MG CAPSULE (FP) PO SCH ×3 (06:16→21:20)
[2017-02-24] MEDS: lamoTRIgine 25 MG TABLET PO SCH ×2 (09:54→21:21)
[2017-02-24] MEDS: RANITIDINE HCL 150 MG TABLET (FP) PO SCH ×2 (09:54→21:21)
[2017-02-24] MEDS: BENZOYL PEROXIDE 5% 60 GM GEL..GRAM. TP SCH ×2 (09:54→21:23)
[2017-02-24] MEDS: PRENATAL VITAMINS W/ FOLIC ACID TABLET (FP) PO SCH (09:54)
[2017-02-24] MEDS: PANTOPRAZOLE 40 MG TABLET (FP) PO SCH (09:55)
[2017-02-24] MEDS: LIDOCAINE 5% TOPICAL PATCH TP SCH (09:55)
[2017-02-24] MEDS: SILVER SULFADIAZINE 1% TOP CREAM 50 GM JAR TP SCH ×2 (09:55→21:22)
[2017-02-24] MEDS: THIAMINE HCL 100 MG TABLET (FP) PO SCH (21:20)
[2017-02-24] MEDS: QUEtiapine FUMARATE 100 MG TABLET (FP) PO SCH (21:21)
[2017-02-24] MEDS: LIDOCAINE PATCH REMOVAL MC SCH (21:22)
[2017-02-25] MEDS: GABAPENTIN 300 MG CAPSULE (FP) PO SCH ×3 (06:19→21:29)
[2017-02-25] MEDS: LYTES/YERBA SANTA 240 ML BOTTLE MM SCH ×3 (06:20→21:29)
[2017-02-25] MEDS ORDERED: PT OWN MED DRAWER 7, Y5N ONE (08:54)
[2017-02-25] MEDS: lamoTRIgine 25 MG TABLET PO SCH ×2 (10:20→21:29)
[2017-02-25] MEDS: RANITIDINE HCL 150 MG TABLET (FP) PO SCH ×2 (10:20→21:29)
[2017-02-25] MEDS: PRENATAL VITAMINS W/ FOLIC ACID TABLET (FP) PO SCH (10:20)
[2017-02-25] MEDS: PANTOPRAZOLE 40 MG TABLET (FP) PO SCH (10:20)
[2017-02-25] MEDS: SILVER SULFADIAZINE 1% TOP CREAM 50 GM JAR TP SCH ×2 (10:20→21:31)
[2017-02-25] MEDS: BENZOYL PEROXIDE 5% 60 GM GEL..GRAM. TP SCH ×2 (10:20→21:30)
[2017-02-25] MEDS: LIDOCAINE 5% TOPICAL PATCH TP SCH (10:21)
[2017-02-25] MEDS: COLLOIDAL OATMEAL 1 BAR EACH TP PRN (10:44)
[2017-02-25] MEDS: THIAMINE HCL 100 MG TABLET (FP) PO SCH (21:29)
[2017-02-25] MEDS: QUEtiapine FUMARATE 100 MG TABLET (FP) PO SCH (21:29)
[2017-02-25] MEDS: LIDOCAINE PATCH REMOVAL MC SCH (21:30)
[2017-02-26] MEDS ORDERED: PT OWN MED DRAWER 7, Y5N ONE ×3 (03:24→19:34)
[2017-02-26] MEDS: LYTES/YERBA SANTA 240 ML BOTTLE MM SCH ×3 (06:30→21:27)
[2017-02-26] MEDS: GABAPENTIN 300 MG CAPSULE (FP) PO SCH ×3 (06:30→21:28)
[2017-02-26] MEDS: BENZOYL PEROXIDE 5% 60 GM GEL..GRAM. TP SCH ×2 (10:08→21:27)
[2017-02-26] MEDS: lamoTRIgine 25 MG TABLET PO SCH ×2 (10:08→21:29)
[2017-02-26] MEDS: RANITIDINE HCL 150 MG TABLET (FP) PO SCH ×2 (10:09→21:29)
[2017-02-26] MEDS: PANTOPRAZOLE 40 MG TABLET (FP) PO SCH (10:09)
[2017-02-26] MEDS: PRENATAL VITAMINS W/ FOLIC ACID TABLET (FP) PO SCH (10:09)
[2017-02-26] MEDS: LIDOCAINE 5% TOPICAL PATCH TP SCH (10:10)
[2017-02-26] MEDS: SILVER SULFADIAZINE 1% TOP CREAM 50 GM JAR TP SCH ×2 (10:10→21:31)
[2017-02-26] MEDS: NAPROXEN 500 MG TABLET (FP) PO PRN ×2 (12:45→22:06)
[2017-02-26] MEDS: THIAMINE HCL 100 MG TABLET (FP) PO SCH (21:28)
[2017-02-26] MEDS: QUEtiapine FUMARATE 100 MG TABLET (FP) PO SCH (21:28)
[2017-02-26] MEDS: LIDOCAINE PATCH REMOVAL MC SCH (21:29)
[2017-02-27] MEDS ORDERED: PT OWN MED DRAWER 7, Y5N ONE ×2 (03:10→19:18)
[2017-02-27] MEDS: LYTES/YERBA SANTA 240 ML BOTTLE MM SCH ×3 (06:13→21:19)
[2017-02-27] MEDS: GABAPENTIN 300 MG CAPSULE (FP) PO SCH ×3 (06:13→21:21)
[2017-02-27] MEDS: BENZOYL PEROXIDE 5% 60 GM GEL..GRAM. TP SCH ×2 (09:54→21:20)
[2017-02-27] MEDS: PANTOPRAZOLE 40 MG TABLET (FP) PO SCH (09:55)
[2017-02-27] MEDS: lamoTRIgine 25 MG TABLET PO SCH ×2 (09:55→21:20)
[2017-02-27] MEDS: LIDOCAINE 5% TOPICAL PATCH TP SCH (09:56)
[2017-02-27] MEDS: PRENATAL VITAMINS W/ FOLIC ACID TABLET (FP) PO SCH (09:56)
[2017-02-27] MEDS: RANITIDINE HCL 150 MG TABLET (FP) PO SCH ×2 (09:56→21:21)
[2017-02-27] MEDS: SILVER SULFADIAZINE 1% TOP CREAM 50 GM JAR TP SCH ×2 (09:57→21:22)
[2017-02-27] MEDS: NAPROXEN 500 MG TABLET (FP) PO PRN (21:20)
[2017-02-27] MEDS: THIAMINE HCL 100 MG TABLET (FP) PO SCH (21:21)
[2017-02-27] MEDS: QUEtiapine FUMARATE 100 MG TABLET (FP) PO SCH (21:21)
[2017-02-27] MEDS: LIDOCAINE PATCH REMOVAL MC SCH (21:22)
[2017-02-28] MEDS: GABAPENTIN 300 MG CAPSULE (FP) PO SCH ×3 (06:24→21:28)
[2017-02-28] MEDS: LYTES/YERBA SANTA 240 ML BOTTLE MM SCH ×3 (06:24→21:30)
[2017-02-28] MEDS: LIDOCAINE 5% TOPICAL PATCH TP SCH (10:18)
[2017-02-28] MEDS: lamoTRIgine 25 MG TABLET PO SCH ×2 (10:18→21:28)
[2017-02-28] MEDS: PANTOPRAZOLE 40 MG TABLET (FP) PO SCH (10:18)
[2017-02-28] MEDS: RANITIDINE HCL 150 MG TABLET (FP) PO SCH ×2 (10:18→21:28)
[2017-02-28] MEDS: BENZOYL PEROXIDE 5% 60 GM GEL..GRAM. TP SCH ×2 (10:18→21:30)
[2017-02-28] MEDS: SILVER SULFADIAZINE 1% TOP CREAM 50 GM JAR TP SCH ×2 (10:18→21:31)
[2017-02-28] MEDS: PRENATAL VITAMINS W/ FOLIC ACID TABLET (FP) PO SCH (10:18)
[2017-02-28] MEDS: NAPROXEN 500 MG TABLET (FP) PO PRN ×2 (10:19→21:29)
[2017-02-28] MEDS ORDERED: PT OWN MED DRAWER 7, Y5N ONE (13:55)
[2017-02-28] MEDS: QUEtiapine FUMARATE 100 MG TABLET (FP) PO SCH (21:27)
[2017-02-28] MEDS: THIAMINE HCL 100 MG TABLET (FP) PO SCH (21:27)
[2017-02-28] MEDS: LIDOCAINE PATCH REMOVAL MC SCH (21:30)
[2017-03-01] MEDS ORDERED: PT OWN MED DRAWER 7, Y5N ONE ×3 (05:59→13:25)
[2017-03-01] MEDS: LYTES/YERBA SANTA 240 ML BOTTLE MM SCH ×3 (06:38→21:28)
[2017-03-01] MEDS: GABAPENTIN 300 MG CAPSULE (FP) PO SCH ×3 (06:38→21:27)
[2017-03-01] MEDS: LIDOCAINE 5% TOPICAL PATCH TP SCH (10:21)
[2017-03-01] MEDS: PRENATAL VITAMINS W/ FOLIC ACID TABLET (FP) PO SCH (10:22)
[2017-03-01] MEDS: RANITIDINE HCL 150 MG TABLET (FP) PO SCH ×2 (10:22→21:27)
[2017-03-01] MEDS: PANTOPRAZOLE 40 MG TABLET (FP) PO SCH (10:22)
[2017-03-01] MEDS: lamoTRIgine 25 MG TABLET PO SCH ×2 (10:23→21:27)
[2017-03-01] MEDS: NAPROXEN 500 MG TABLET (FP) PO PRN ×2 (10:24→20:05)
[2017-03-01] MEDS: SILVER SULFADIAZINE 1% TOP CREAM 50 GM JAR TP SCH ×2 (10:25→21:28)
[2017-03-01] MEDS: BENZOYL PEROXIDE 5% 60 GM GEL..GRAM. TP SCH ×2 (10:25→21:26)
[2017-03-01] MEDS: QUEtiapine FUMARATE 100 MG TABLET (FP) PO SCH (21:27)
[2017-03-01] MEDS: THIAMINE HCL 100 MG TABLET (FP) PO SCH (21:27)
[2017-03-01] MEDS: LIDOCAINE PATCH REMOVAL MC SCH (21:29)
[2017-03-02] MEDS: LYTES/YERBA SANTA 240 ML BOTTLE MM SCH (06:21)
[2017-03-02] MEDS: GABAPENTIN 300 MG CAPSULE (FP) PO SCH (06:21)
[2017-03-02 07:11] VITALS: BP 116/78; PULSE 85; TEMP 97.9
[2017-03-02] MEDS: lamoTRIgine 25 MG TABLET PO SCH (09:24)
[2017-03-02] MEDS: PRENATAL VITAMINS W/ FOLIC ACID TABLET (FP) PO SCH (09:24)
[2017-03-02] MEDS: PANTOPRAZOLE 40 MG TABLET (FP) PO SCH (09:24)
[2017-03-02] MEDS: NAPROXEN 500 MG TABLET (FP) PO PRN (09:25)
[2017-03-02] MEDS: BENZOYL PEROXIDE 5% 60 GM GEL..GRAM. TP SCH (09:48)
[2017-03-02] MEDS: LIDOCAINE 5% TOPICAL PATCH TP SCH (09:48)
[2017-03-02] MEDS: RANITIDINE HCL 150 MG TABLET (FP) PO SCH (09:49)
[2017-03-02] MEDS: SILVER SULFADIAZINE 1% TOP CREAM 50 GM JAR TP SCH (09:49)
--- NOTE | 2017-03-02 10:00 | PN ---
Psychiatric Progress Note Vital Signs: Vital Signs Period Temp Pulse Resp BP Sys/Glover Pulse Ox Last 24 Hr 97.9 F 85 18-18 116/78 Date of Session: 03/02/17 Chief Complaint:: Discharge visit HPI: Patient addressed Alcohol and Cocaine dependence comorbid with Bipolar Disorder. Current Medications: Active Medications Generic Name Dose Route Start Last Admin Trade Name Freq PRN Reason Stop Dose Admin Acetaminophen 650 mg 02/12/17 13:30 02/22/17 08:55 Tylenol - PO 650 mg Q4H PRN Administration FEVER OR PAIN Al Hydroxide/Mg Hydroxide 30 ml 02/16/17 00:29 Mylanta Oral Suspension - PO Q6H PRN Albuterol Sulfate 2 puff 02/15/17 13:02 02/22/17 10:29 Ventolin Hfa Inhaler - IH 2 puff Q4H PRN Administration SHORT OF BREATH/WHEEZING Benzoyl Peroxide 1 applic 02/22/17 11:30 03/01/17 21:26 Benzoyl Peroxide 5% Gel - TP Not Given BID LEWIS Colloidal Oatmeal 1 applic 02/18/17 10:52 02/25/17 10:44 Aveeno Soap - TP 1 bar DAILY PRN Administration HYGEINE Eucalyptus/Menthol/Phenol/Sorbitol 1 each 02/12/17 13:30 02/17/17 10:02 Cepastat Lozenge - MM 1 each Q4H PRN Administration SORE THROAT Gabapentin 300 mg 02/14/17 14:00 03/02/17 06:21 Neurontin - PO 300 mg TID LEWIS Administration Guaifenesin 10 ml 02/12/17 13:30 Robitussin Dm - PO Q6H PRN COUGH Hydroxyzine Pamoate 50 mg 02/17/17 11:45 Vistaril - PO Q6H PRN ANXIETY Lamotrigine 50 mg 02/23/17 16:15 03/02/17 09:24 Lamictal - PO 50 mg BID LEWIS Administration Lidocaine 1 patch 02/13/17 10:00 03/01/17 10:21 Lidoderm Patch - TP 1 patch DAILY LEWIS Administration Loperamide HCl 4 mg 02/12/17 13:30 Imodium - PO Q6H PRN DIARRHEA Magnesium Hydroxide 30 ml 02/12/17 13:30 Milk Of Magnesia - PO DAILY PRN CONSTIPATION Miscellaneous 1 each 02/12/17 22:00 03/01/17 21:29 Lidoderm Patch Removal MC 1 each DAILY@2200 LEWIS Administration Naproxen 500 mg 02/17/17 11:48 03/02/17 09:25 Naprosyn - PO 500 mg BID PRN Administration PAIN Pantoprazole Sodium 40 mg 02/14/17 15:00 03/02/17 09:24 Protonix - PO 40 mg DAILY LEWIS Administration Multivit/Folic Acid/Iron 1 tab 02/13/17 10:00 03/02/17 09:24 Vitamins (Sjr) - PO 1 tab DAILY LEWIS Administration Quetiapine Fumarate 300 mg 02/12/17 22:00 03/01/17 21:27 Seroquel - PO 300 mg HS LEWIS Administration Ranitidine HCl 150 mg 02/12/17 22:00 03/01/17 21:27 Zantac - PO 150 mg BID LEWIS Administration Saliva Substitute 1 applic 02/18/17 14:00 03/02/17 06:21 Mouthkote Solution - MM 1 applic TID LEWIS Administration Silver Sulfadiazine 1 applic 02/12/17 22:00 03/01/17 21:28 Silvadene - TP Not Given BID LEWIS Thiamine HCl 100 mg 02/12/17 22:00 03/01/17 21:27 Vitamin B1 - PO 100 mg HS LEWIS Administration Current Side Effect: No Lab tests ordered: No Lab tests reviewed: Yes Provider note:: Patient completed this program today.She has met her treatment goals and will continue to address her issues on outpatient basis at [facility] in the [place].Patient reports finding that Lamictal 50 mg po bid,Seroquel 300 mg po hs and Neurontin 300 mg po tid help to cope with anxiety, mood instability and sleeping difficulties.Scripts for 30 days supply provided. Patient identifies areas of difficulties,behaviors which contribute to relapse and coping skills,supports she can utilize to maintain recovery. Patient is stable for discharge today. Total face to face time:: 30 Mental Status Exam - Mental Status Exam Alert and Oriented to: Time, Place, Person Cognitive Function: Grossly Intact Patient Appearance: Well Groomed Mood: Euthymic Affect: Mood Congruent Patient Behavior: Cooperative Speech Pattern: Clear Voice Loudness: Normal Thought Process: Goal Oriented Thought Disorder: Being Controlled Hallucinations: Denies Suicidal Ideation: Denies Homicidal Ideation: Denies Insight/Judgement: Fair Sleep: Fair Appetite: Good Muscle strength/Tone: Normal Gait/Station: Normal Psychiatric Treatment Plan - Problem List (1) Drug-induced mood disorder Current Visit: No (2) Nicotine dependence Current Visit: Yes Qualifiers: Nicotine product type: cigarettes Substance use status: uncomplicated Qualified Code(s): F17.210 - Nicotine dependence, cigarettes, uncomplicated (3) Hx of migraine headaches Current Visit: Yes (4) Alcohol dependence Current Visit: Yes (5) Cocaine dependence Current Visit: Yes
== END 2017-03-02 09:48 | disposition home or self-care (01) | DRG 772 ==
LOC: YASAS 12:28 → Y3E 12:29
PROVIDERS: ADMIT Psychiatry & Neurology Psychiatry; ATTEND Psychiatry & Neurology Psychiatry
PROC: HZ42ZZZ Group Counseling for Substance Abuse Treatment, Cognitive-Behavioral (ICD-10-PCS; principal; 2017-02-12)
DX: F10.230 Alcohol dependence with withdrawal, uncomplicated (principal); F14.20 Cocaine dependence, uncomplicated; F17.210 Nicotine dependence, cigarettes, uncomplicated; F19.24 Other psychoactive substance dependence with psychoactive substance-induced mood disorder; F31.9 Bipolar disorder, unspecified; Z86.69 Personal history of other diseases of the nervous system and sense organs
CPT/HCPCS: 87070

== ENCOUNTER 2018-03-21 09:37 | Inpatient (IN) | payer OTHER ==
[2018-03-21 09:59] VITALS: BMI 29.4
--- NOTE | 2018-03-21 10:49 | HP ---
CIWA Score - CIWA Score Nausea/Vomitin Muscle Tremors: 3 Anxiety: 3 Agitation: 2 Paroxysmal Sweats: 1-Minimal Palms Moist Orientation: 0-Oriented Tacttile Disturbances: 1-Very Mild Itch/Numbness Auditory Disturbances: 1-Very Mild Visual Disturbances: 0-None Headache: 2-Mild CIWA-Ar Total Score: 15 Admission ROS BHS - HPI Chief Complaint: i need help to stop drinking alcohol and cocaine Allergies/Adverse Reactions: Allergies Allergy/AdvReac Type Severity Reaction Status Date / Time No Known Allergies Allergy Verified 03/21/18 10:35 History of Present Illness: this 37 years old female with alcohol and cocaine dependence,seeking detox, withdrawal symptom,last detox 02/08/17 to 02/12/17,rehab 02/12/17 to 03/01/17 seizure last 03/07 seizure last 03/07 bipolar disorder,insomnia,depression s/p tubal ligation 15 years ago s/p lap cholecystomy in 1993 s/p removal of oavrian cyst left no significant period of sobriety weight loss asthma - Ebola screening Have you traveled outside of the country in the last 21 days: No Have you had contact with anyone from an Ebola affected area: No Have you been sick,other than usual withdrawal symptoms: No Do you have a fever: No - Review of Systems Constitutional: Loss of Appetite, Malaise, Night Sweats, Changes in sleep, Weakness, Unintentional Wgt. Loss EENT: reports: Nose Congestion Respiratory: reports: No Symptoms reported Cardiac: reports: Palpitations GI: reports: Nausea, Vomiting, Abdominal cramping : reports: No Symptoms Reported Musculoskeletal: reports: Back Pain, Muscle Pain Integumentary: reports: Dryness Neuro: reports: Tremors Endocrine: reports: No Symptoms Reported Hematology: reports: No Symptoms Reported Psychiatric: reports: No Sypmtoms Reported, Judgement Intact, Mood/Affect Appropiate, Orientated x3, Anxious, Depressed (bipolar disorder) Patient History - Patient Medical History Hx Anemia: Yes (YEARS AGO WHEN ) Hx Asthma: Yes (on albuerol inhaler) Hx Chronic Obstructive Pulmonary Disease (COPD): No Hx Cardiac Disorders: No Hx Hypertension: No Hx Hypercholesterolemia: No HX Cerebrovascular Accident: No Hx Seizures: No Hx Diabetes: No Hx Gastrointestinal Disorders: Yes (GERD) Hx Genitourinary Disorders: No Hx Sexually Transmitted Disorders: No Hx Renal Disease (ESRD): No Hx Thyroid Disease: No Hx Human Immunodeficiency Virus (HIV): No (NEGATIVE HX) Hx Depression: Yes Hx Suicide Attempt: Yes (cutting wrist 2011,overdose) Hx Schizophrenia: No Other Medical History: no suicidal,no homicidal - Patient Surgical History Past Surgical History: Yes Hx Neurologic Surgery: No Hx Cataract Extraction: No Hx Cardiac Surgery: No Hx Lung Surgery: No Hx Breast Surgery: No Hx Breast Biopsy: No Hx Abdominal Surgery: No Hx Appendectomy: No Hx Cholecystectomy: Yes (lap cholecystectomy in 1993) Hx Genitourinary Surgery: No Hx Section: Yes Hx Orthopedic Surgery: No (TUBAL LIGATION AND OVARIAN CYST REMOVAL) Anesthesia Reaction: No - PPD History Previous Implant?: Yes Implanted On Prior [facility] Admission?: Yes Date: 02/10/17 Results: 0mm PPD to be Administered?: Yes - Reproductive History Patient is a Female of Child Bearing Age (11 -55 yrs old): Yes Last Menstrual Period: 03/16/18 Patient : No - Smoking Cessation Smoking history: Current every day smoker Have you smoked in the past 12 months: Yes Aproximately how many cigarettes per day: 3 Hx Chewing Tobacco Use: No Initiated information on smoking cessation: Yes 'Breaking Loose' booklet given: 03/21/18 - Substance & Tx. History Hx Alcohol Use: Yes Hx Substance Use: Yes Substance Use Type: Alcohol, Cocaine Hx Substance Use Treatment: Yes ([facility] 02/08/17 to 02/12/17 detox,rehab 02/12/17 to 03/01/17) - Substances Abused Alcohol-vodka/tequila Route: Oral Frequency: 3-6 times per week Amount used: 1 pt./3 (24 oz.) Age of first use: 35 Date of Last Use: 03/20/18 Crack Route: Smoking Frequency: Daily Amount used: $400 Age of first use: 32 Date of Last Use: 03/21/18 Family Disease History - Family Disease History Family Disease History: Diabetes: Grandparent (), CA: Grandparent, Mother (), Other: Father (DRUG OVERDOSE-) Admission Physical Exam BHS - Vital Signs Vital Signs: Vital Signs - 24 hr 03/21/18 09:56 Temperature 98.4 F Pulse Rate 92 H Respiratory 19 Rate Blood Pressure 120/80 - Physical General Appearance: Yes: Moderate Distress, Tremorous, Irritable, Sweating, Anxious HEENTM: Yes: Normal ENT Inspection, SAMUEL, Pharynx Normal Respiratory: Yes: Lungs Clear, Normal Breath Sounds, No Respiratory Distress Neck: Yes: Within Normal Limits, Supple, Trachea in good position Breast: Yes: Breast Exam Deferred Cardiology: Yes: Within Normal Limits, Regular Rhythm, Regular Rate, S1, S2 Abdominal: Yes: Within Normal Limits, Normal Bowel Sounds, Non Tender, Soft Genitourinary: Yes: Within Normal Limits Back: Yes: Muscle Spasm Musculoskeletal: Yes: Back pain, Muscle Pain Extremities: Yes: Normal Range of Motion, Tremors Neurological: Yes: knife cutter II-XII NML intact, Fully Oriented, Alert, Motor Strength 5/5 Integumentary: Yes: Dry Lymphatic: Yes: Within Normal Limits - Diagnostic (1) Alcohol dependence with uncomplicated withdrawal Current Visit: Yes Status: Acute (2) Bipolar disorder Current Visit: No Status: Chronic (3) Cocaine dependence, uncomplicated Current Visit: No Status: Chronic (4) Nicotine dependence Current Visit: No Status: Chronic Qualifiers: Nicotine product type: cigarettes Substance use status: uncomplicated Qualified Code(s): F17.210 - Nicotine dependence, cigarettes, uncomplicated (5) Asthma Current Visit: Yes Status: Acute (6) Insomnia Current Visit: Yes Status: Acute (7) Depression Current Visit: Yes Status: Acute (8) Seizure Current Visit: Yes Status: Acute (9) GERD (gastroesophageal reflux disease) Current Visit: Yes Status: Acute Cleared for Admission [facility] - Detox or Rehab [facility] Level of Care: Medically Managed Detox Regimen/Protocol: Librium S Breath Alcohol Content Breath Alcohol Content: 0 Urine Pregancy Test - Result Urine Test Results: Negative- NO Line Present Urine Drug Screen - Results Drug Screen Negative: No Urine Drug Screen Results: LUIS-Cocaine, BAR-Barbiturates, BZO-Benzodiazepines
[2018-03-21] MEDS ORDERED: MAG HYDROX/AL HYDROX/SIMETH 30 ML UNIT-DOSE CUP PO PRN (11:01)
[2018-03-21] MEDS ORDERED: P-EPHED 60MG/TRIPROLIDI 2.5MG TABLET PO PRN (11:01)
[2018-03-21] MEDS ORDERED: guaiFENesin/D-METHORPHAN HB 10 ML UNIT-DOSE CUPS PO PRN (11:01)
[2018-03-21] MEDS ORDERED: MAGNESIUM CITRATE 300 ML BOTTLE PO PRN (11:01)
[2018-03-21] MEDS ORDERED: chlordiazePOXIDE HCL 25 MG CAPSULE PO PRN (11:01)
[2018-03-21] MEDS ORDERED: MAGNESIUM HYDROX 2400MG/30ML ORAL SUSPENSION 30 ML CUP PO PRN (11:01)
[2018-03-21] MEDS ORDERED: MENTHOL/PHENOL 1 EACH UD MM PRN (11:01)
[2018-03-21] MEDS: IBUPROFEN 400 MG TABLET (FP) PO PRN (13:47)
--- NOTE | 2018-03-21 14:16 | CONSULT ---
[facility] Psychiatric Consult - Data Date of interview: 03/21/18 Admission source: [facility] Identifying data: Patient is a 37 year old female, mother of five, unemployed, domicled, and is supported by public assistance. This is one of multiple admissions to detox at [facility]. Patient admitted to for alcohol and cocaine dependence. Substance Abuse History: - Smoking Cessation. Smoking history: Current every day smoker. Have you smoked in the past 12 months: Yes. Aproximately how many cigarettes per day: 3. Hx Chewing Tobacco Use: No. Initiated information on smoking cessation: Yes. 'Breaking Loose' booklet given: 03/21/18. - Substance & Tx. History. Hx Alcohol Use: Yes. Hx Substance Use: Yes. Substance Use Type : Alcohol, Cocaine. Hx Substance Use Treatment: Yes ([facility] 02/08/17 to 02/12/17 detox,rehab 02/12/17 to 03/01/17). - Substances Abused. Alcohol-vodka/ tequila. Route: Oral. Frequency: 3-6 times per week. Amount used: 1 pt./3 ( 24 oz.). Age of first use: 35. Date of Last Use: 03/20/18 Medical History: Asthma, GERD, lap cholecystectomy in 1993 Psychiatric History: Patient's first psychiatric contact was in 2017 at an outpatient clinic after reporting depression and insomnia. After several months of her first psychiatric contact patient overdosed on seroquel 300mg ( 9 pills) and was admitted for 2 weeks at a hospital in [place], [place]. While hospitalized she was on trials of lamicatal, seroquel, xanax, ambien, zoloft and gabapentin. While in detox/rehab at [facility] in 2016 patient was prescribed lamictal 100mg qhs + Gabapentin 300mg TID + Seroquel 300mg qhs. She reports noncompliance to medications since discharge from Rehab in 02/2017. Patient currently reports poor sleep and feeling sad. Physical/Sexual Abuse/Trauma History: denies. Mental Status Exam - Mental Status Exam Alert and Oriented to: Time, Place, Person Cognitive Function: Good Patient Appearance: Well Groomed Mood: Euthymic Affect: Mood Congruent Patient Behavior: Appropriate, Cooperative Speech Pattern: Appropriate Voice Loudness: Normal Thought Process: Intact, Goal Oriented Thought Disorder: Not Present Hallucinations: Denies Suicidal Ideation: Denies Homicidal Ideation: Denies Insight/Judgement: Poor Sleep: Poorly Appetite: Fair Muscle strength/Tone: Normal Gait/Station: Normal Psychiatric Findings - Problem List ([place] 1, 2,3) (1) Mood disorder Current Visit: Yes Status: Chronic (2) Alcohol dependence Current Visit: Yes Status: Acute (3) Cocaine dependence Current Visit: Yes Status: Acute (4) Alcohol dependence with uncomplicated withdrawal Current Visit: Yes Status: Acute (5) Substance-induced sleep disorder Current Visit: Yes Status: Acute - Initial Treatment Plan Initial Treatment Plan: Psychoeducation provided. Detoxification in progress. Will order Seroquel 50mg qhs. Benefits and side effects discussed. Verbal consent given.
--- NOTE | 2018-03-21 16:04 | EKG ---
Test Reason : Blood Pressure : / mmHG Vent. Rate : 081 BPM Atrial Rate : 081 BPM P-R Int : 124 ms QRS Dur : 078 ms QT Int : 384 ms P-R-T Axes : 035 067 064 degrees QTc Int : 446 ms NORMAL SINUS RHYTHM NORMAL ECG WHEN COMPARED WITH ECG OF 08-FEB-2017 14:38, NO SIGNIFICANT CHANGE WAS FOUND Confirmed by Agustin Niño MD ([id number]) on 03/21/2018 4:03:56 PM Referred By: Confirmed By:Agustin Niño MD
[2018-03-21] MEDS: chlordiazePOXIDE HCL 25 MG CAPSULE PO SCH ×2 (17:28→22:17)
[2018-03-21 18:01] LABS: URINE APPEARANCE SLCLOUDY; URINE COLOR DKYELLOW; URINE GLUCOSE (UA) NEGATIVE (NEGATIVE); URINE KETONE NEGATIVE (NEGATIVE); URINE NITRITE NEGATIVE (NEGATIVE); URINE UROBILINOGEN 4.0 E.U/dl mg/dL (0.2-1.0)
[2018-03-21 18:16] LABS: URINE LEUK ESTERASE 3+ (NEGATIVE); URINE PROTEIN 1+ (NEGATIVE)
[2018-03-21 19:03] LABS: EPI CELLS MODERATE /HPF (FEW); URINE BACTERIA MANY /hpf (NONE SEEN); URINE MUCUS RARE
[2018-03-21] MEDS: THIAMINE HCL 100 MG TABLET (FP) PO SCH (22:17)
[2018-03-21] MEDS: QUEtiapine FUMARATE 50 MG TABLET PO SCH (22:17)
[2018-03-21] MEDS: RANITIDINE HCL 150 MG TABLET (FP) PO SCH (22:18)
[2018-03-22] MEDS: chlordiazePOXIDE HCL 25 MG CAPSULE PO SCH ×4 (05:23→22:19)
[2018-03-22] MEDS: PRENATAL VITAMINS W/ FOLIC ACID TABLET (FP) PO SCH (10:05)
[2018-03-22] MEDS: RANITIDINE HCL 150 MG TABLET (FP) PO SCH ×2 (10:05→22:20)
[2018-03-22 10:30] LABS: HEMATOCRIT 40.9 % (32.4-45.2); HEMOGLOBIN 12.9 GM/dL (10.7-15.3); MCH 26.7 pg (25.7-33.7); MCHC 31.4 g/dl (32.0-36.0); MEAN PLT VOLUME 10.7 fl (7.5-11.1); PLATELET COUNT 358 K/MM3 (134-434); RBC 4.82 M/mm3 (3.60-5.2); RDW 14.5 % (11.6-15.6); WHITE BLOOD COUNT 9.1 K/mm3 (4.0-10.0)
[2018-03-22 11:02] LABS: ALBUMIN 4.4 g/dl (3.4-5.0); ALK PHOS 116 U/L (45-117); ANION GAP 12 MMOL/L (8-16); BILIRUBIN,TOTAL 0.4 mg/dL (0.2-1); BLOOD UREA NITROGEN 16 mg/dL (7-18); CHLORIDE 106 mmol/L (98-107); CO2 25 mmol/L (21-32); CREATININE 0.8 mg/dL (0.55-1.3); GLUCOSE,RANDOM 71 mg/dL (74-106); POTASSIUM 4.1 mmol/L (3.5-5.1); SGOT/AST 11 U/L (15-37); SGPT/ALT 16 U/L (13-61); SODIUM 143 mmol/L (136-145); TOT PROT 7.8 g/dl (6.4-8.2)
--- NOTE | 2018-03-22 11:21 | PN ---
S CIWA - CIWA Score Nausea/Vomitin-No Nausea/No Vomiting Muscle Tremors: 3 Anxiety: 3 Agitation: 3 Paroxysmal Sweats: 3 Orientation: 0-Oriented Tacttile Disturbances: 0-None Auditory Disturbances: 0-None Visual Disturbances: 0-None Headache: 1-Very Mild CIWA-Ar Total Score: 13 S Progress Note (SOAP) Subjective: sweats shakes interrupted sleep agitation body aches nausea Objective: 03/22/18 11:20 Vital Signs Temperature 98.2 F 03/22/18 09:11 Pulse Rate 88 03/22/18 09:11 Respiratory Rate 16 03/22/18 09:11 Blood Pressure 112/74 03/22/18 09:11 O2 Sat by Pulse Oximetry (%) Laboratory Tests 03/21/18 03/21/18 03/22/18 11:30 16:30 06:00 WBC 9.1 RBC 4.82 Hgb 12.9 Hct 40.9 MCV 85.0 MCH 26.7 MCHC 31.4 L RDW 14.5 Plt Count 358 MPV 10.7 Sodium Potassium Chloride Carbon Dioxide Anion Gap BUN Creatinine Creat Clearance w eGFR Random Glucose Calcium Total Bilirubin AST ALT Alkaline Phosphatase Total Protein Albumin Urine Color Dkyellow Urine Appearance Slcloudy Urine pH 5.0 Ur Specific [place] 1.039 H Urine Protein 1+ H Urine Glucose (UA) Negative Urine Ketones Negative Urine Blood Negative Urine Nitrite Negative Urine Bilirubin 2.0 Urine Urobilinogen 4.0 e.u/dl H Ur Leukocyte Esterase 3+ H Urine WBC (Auto) 41 Urine RBC (Auto) 8 Ur Epithelial Cells Moderate Urine Bacteria Many Urine Mucus Rare HIV 1&2 Antibody Screen Negative HIV P24 Antigen Negative 03/22/18 06:00 WBC RBC Hgb Hct MCV MCH MCHC RDW Plt Count MPV Sodium 143 Potassium 4.1 Chloride 106 Carbon Dioxide 25 Anion Gap 12 BUN 16 Creatinine 0.8 Creat Clearance w eGFR > 60 Random Glucose 71 L Calcium 9.0 Total Bilirubin 0.4 AST 11 L ALT 16 Alkaline Phosphatase 116 Total Protein 7.8 Albumin 4.4 Urine Color Urine Appearance Urine pH Ur Specific [place] Urine Protein Urine Glucose (UA) Urine Ketones Urine Blood Urine Nitrite Urine Bilirubin Urine Urobilinogen Ur Leukocyte Esterase Urine WBC (Auto) Urine RBC (Auto) Ur Epithelial Cells Urine Bacteria Urine Mucus HIV 1&2 Antibody Screen HIV P24 Antigen repeat u/a increase fluids aaox3 ambulating no acute distress Assessment: 03/22/18 11:20 withdrawal sx Plan: continue detox increase fluids f/u pending labs
[2018-03-22] MEDS ORDERED: FLU VACCINE QUAD 60 MCG/0.5 ML (MDV 18-19) IM ONE (12:00)
[2018-03-22] MEDS: ACETAMINOPHEN 325 MG TABLET (FP) PO PRN ×2 (12:39→21:08)
[2018-03-22] MEDS: LOPERAMIDE HCL 2 MG CAPSULE PO PRN ×2 (15:29→22:21)
[2018-03-22] MEDS: QUEtiapine FUMARATE 50 MG TABLET PO SCH (22:20)
[2018-03-22] MEDS: THIAMINE HCL 100 MG TABLET (FP) PO SCH (22:21)
[2018-03-22] MEDS: hydrOXYzine PAMOATE 25 MG CAPSULE (FP) PO PRN (22:21)
[2018-03-22] MEDS: IBUPROFEN 400 MG TABLET (FP) PO PRN (23:21)
[2018-03-23] MEDS: chlordiazePOXIDE HCL 25 MG CAPSULE PO SCH ×2 (05:46→11:42)
[2018-03-23] MEDS: IBUPROFEN 400 MG TABLET (FP) PO PRN (05:47)
[2018-03-23] MEDS: ACETAMINOPHEN 325 MG TABLET (FP) PO PRN ×3 (08:41→20:31)
--- NOTE | 2018-03-23 09:30 | PN ---
S CIWA - CIWA Score Nausea/Vomitin-Mild Nausea/No Vomiting Muscle Tremors: 3 Anxiety: 3 Agitation: 3 Paroxysmal Sweats: 1-Minimal Palms Moist Orientation: 0-Oriented Tacttile Disturbances: 0-None Auditory Disturbances: 0-None Visual Disturbances: 0-None Headache: 1-Very Mild CIWA-Ar Total Score: 12 BHS Progress Note (SOAP) Subjective: 37 years old female admitted on 03/21/18 for alcohol withdrawal sx medical history of asthma and GERD, currently no treatment in the community has bipolar II reported "have not seen anyone" observed patient lying on bed eating breakfast, denies nausea but diarrhea x "days" c/0 mid chest immobile discomfort 3/10 comes and goes x 3-4 days, stated zantac not working negative ECG, S1S2 RRR lung clear bilaterally, abdomen gassy, hyperactive BS x 4 , soft non-tenderness, skin warm dry mild finger tips tremor felt recommended maalox and prescribed gaviscon continue monitoring sweat tremor body aches anxiety Objective: 03/23/18 12:27 Vital Signs Temperature 98.1 F 03/23/18 09:56 Pulse Rate 91 H 03/23/18 09:56 Respiratory Rate 17 03/23/18 09:56 Blood Pressure 104/59 L 03/23/18 09:56 O2 Sat by Pulse Oximetry (%) Laboratory Last Values WBC 9.1 K/mm3 (4.0-10.0) 03/22/18 06:00 RBC 4.82 M/mm3 (3.60-5.2) 03/22/18 06:00 Hgb 12.9 GM/dL (10.7-15.3) 03/22/18 06:00 Hct 40.9 % (32.4-45.2) 03/22/18 06:00 MCV 85.0 fl (80-96) 03/22/18 06:00 MCH 26.7 pg (25.7-33.7) 03/22/18 06:00 MCHC 31.4 g/dl (32.0-36.0) L 03/22/18 06:00 RDW 14.5 % (11.6-15.6) 03/22/18 06:00 Plt Count 358 K/MM3 (134-434) 03/22/18 06:00 MPV 10.7 fl (7.5-11.1) 03/22/18 06:00 Sodium 143 mmol/L (136-145) 03/22/18 06:00 Potassium 4.1 mmol/L (3.5-5.1) 03/22/18 06:00 Chloride 106 mmol/L (98-107) 03/22/18 06:00 Carbon Dioxide 25 mmol/L (21-32) 03/22/18 06:00 Anion Gap 12 MMOL/L (8-16) 03/22/18 06:00 BUN 16 mg/dL (7-18) 03/22/18 06:00 Creatinine 0.8 mg/dL (0.55-1.3) 03/22/18 06:00 Creat Clearance w eGFR > 60 (>60) 03/22/18 06:00 Random Glucose 71 mg/dL (74-106) L 03/22/18 06:00 Calcium 9.0 mg/dL (8.5-10.1) 03/22/18 06:00 Total Bilirubin 0.4 mg/dL (0.2-1) 03/22/18 06:00 AST 11 U/L (15-37) L 03/22/18 06:00 ALT 16 U/L (13-61) 03/22/18 06:00 Alkaline Phosphatase 116 U/L (45-117) 03/22/18 06:00 Total Protein 7.8 g/dl (6.4-8.2) 03/22/18 06:00 Albumin 4.4 g/dl (3.4-5.0) 03/22/18 06:00 Urine Color Dkyellow 03/21/18 16:30 Urine Appearance Slcloudy 03/21/18 16:30 Urine pH 5.0 (5.0-8.0) 03/21/18 16:30 Ur Specific [place] 1.039 (1.001-1.035) H 03/21/18 16:30 Urine Protein 1+ (NEGATIVE) H 03/21/18 16:30 Urine Glucose (UA) Negative (NEGATIVE) 03/21/18 16:30 Urine Ketones Negative (NEGATIVE) 03/21/18 16:30 Urine Blood Negative (NEGATIVE) 03/21/18 16:30 Urine Nitrite Negative (NEGATIVE) 03/21/18 16:30 Urine Bilirubin 2.0 (<2.0 mg/dL) 03/21/18 16:30 Urine Urobilinogen 4.0 e.u/dl mg/dL (0.2-1.0) H 03/21/18 16:30 Ur Leukocyte Esterase 3+ (NEGATIVE) H 03/21/18 16:30 Urine WBC (Auto) 41 /hpf (3-5) 03/21/18 16:30 Urine RBC (Auto) 8 /hpf (0-3) 03/21/18 16:30 Ur Epithelial Cells Moderate /HPF (FEW) 03/21/18 16:30 Urine Bacteria Many /hpf (NONE SEEN) 03/21/18 16:30 Urine Mucus Rare 03/21/18 16:30 RPR Titer Nonreactive (NONREACTIVE) 03/22/18 06:00 HIV 1&2 Antibody Screen Negative 03/21/18 11:30 HIV P24 Antigen Negative 03/21/18 11:30 lab noted uti Assessment: 03/23/18 12:29 withdrawal sx uti Plan: continue detox bactrim ds bid x 5 days increase oral fluid
[2018-03-23] MEDS: PRENATAL VITAMINS W/ FOLIC ACID TABLET (FP) PO SCH (10:31)
[2018-03-23] MEDS: SIMETHICONE 80 MG TAB.CHEW (FP) PO SCH ×4 (10:31→22:12)
[2018-03-23] MEDS: SULFAMETHOXAZOLE/TRIMETHOPRIM 800MG/160MG D.S. TABLET PO SCH ×2 (14:34→22:12)
[2018-03-23] MEDS: chlordiazePOXIDE 5 MG CAPSULE PO SCH ×2 (17:09→22:12)
[2018-03-23] MEDS: QUEtiapine FUMARATE 50 MG TABLET PO SCH (22:12)
[2018-03-23] MEDS: THIAMINE HCL 100 MG TABLET (FP) PO SCH (22:12)
[2018-03-23] MEDS: MELATONIN 5 MG TABLETS PO PRN (22:13)
[2018-03-24] MEDS: chlordiazePOXIDE 5 MG CAPSULE PO SCH ×2 (05:31→10:36)
[2018-03-24] MEDS: SULFAMETHOXAZOLE/TRIMETHOPRIM 800MG/160MG D.S. TABLET PO SCH ×2 (10:36→22:23)
[2018-03-24] MEDS: PRENATAL VITAMINS W/ FOLIC ACID TABLET (FP) PO SCH (10:37)
[2018-03-24] MEDS: SIMETHICONE 80 MG TAB.CHEW (FP) PO SCH ×4 (11:00→22:24)
--- NOTE | 2018-03-24 13:42 | PN ---
BHS Progress Note Note: PATIENT C/O TOOTHACHE AND FEELING TIRED. DENIES N/V/D, SHAKES AND HEADACHE. Vital Signs Temperature 98.4 F 03/24/18 09:34 Pulse Rate 77 03/24/18 09:34 Respiratory Rate 16 03/24/18 09:34 Blood Pressure 108/66 03/24/18 09:34 O2 Sat by Pulse Oximetry (%) PE: ALERT AND ORIENTED X 3 SKIN WARM AND DRY CAR S1S2 RESP CTA BL MOUTH : TOOTH DECAY A/P: WITHDRAWAL SYNDROME CONTINUE DETOX ENCOURAGE ORAL FLUIDS ORALGEL ORDERED IBUPROFEN PRN
[2018-03-24] MEDS: chlordiazePOXIDE HCL 10 MG CAPSULE PO SCH ×2 (17:33→22:23)
[2018-03-24] MEDS: ACETAMINOPHEN 325 MG TABLET (FP) PO PRN (17:39)
[2018-03-24] MEDS ORDERED: IBUPROFEN 400 MG TABLET (FP) PO PRN (19:27)
[2018-03-24] MEDS: QUEtiapine FUMARATE 50 MG TABLET PO SCH (22:23)
[2018-03-24] MEDS: THIAMINE HCL 100 MG TABLET (FP) PO SCH (22:24)
[2018-03-25] MEDS: MELATONIN 5 MG TABLETS PO PRN (00:39)
[2018-03-25] MEDS: hydrOXYzine PAMOATE 25 MG CAPSULE (FP) PO PRN (00:39)
[2018-03-25] MEDS: chlordiazePOXIDE HCL 10 MG CAPSULE PO SCH ×2 (05:55→10:21)
[2018-03-25] MEDS: PRENATAL VITAMINS W/ FOLIC ACID TABLET (FP) PO SCH (10:18)
[2018-03-25] MEDS: SULFAMETHOXAZOLE/TRIMETHOPRIM 800MG/160MG D.S. TABLET PO SCH (10:18)
[2018-03-25] MEDS: SIMETHICONE 80 MG TAB.CHEW (FP) PO SCH (10:18)
[2018-03-25 10:42] VITALS: BP 101/59; PULSE 74; TEMP 97.9
--- NOTE | 2018-03-25 17:34 | EKG ---
Test Reason : Blood Pressure : / mmHG Vent. Rate : 082 BPM Atrial Rate : 082 BPM P-R Int : 144 ms QRS Dur : 078 ms QT Int : 386 ms P-R-T Axes : 058 075 057 degrees QTc Int : 450 ms NORMAL SINUS RHYTHM NORMAL ECG WHEN COMPARED WITH ECG OF 21-MAR-2018 13:08, NO SIGNIFICANT CHANGE WAS FOUND Confirmed by UZIEL MEYER MD ([id number]) on 03/25/2018 5:33:50 PM Referred By: Confirmed By:UZIEL MEYER MD
== END 2018-03-25 12:25 | disposition other institution (70) | DRG 774 ==
LOC: YASAS 09:37 → Y6N 12:14
PROC: HZ2ZZZZ Detoxification Services for Substance Abuse Treatment (ICD-10-PCS; principal; 2018-03-21)
DX: F10.230 Alcohol dependence with withdrawal, uncomplicated (principal); F14.20 Cocaine dependence, uncomplicated; F17.210 Nicotine dependence, cigarettes, uncomplicated; F19.282 Other psychoactive substance dependence with psychoactive substance-induced sleep disorder; F31.9 Bipolar disorder, unspecified; F39 Unspecified mood [affective] disorder; F32.9 Major depressive disorder, single episode, unspecified; G47.00 Insomnia, unspecified; K21.9 Gastro-esophageal reflux disease without esophagitis; J45.909 Unspecified asthma, uncomplicated; Z91.5 Personal history of self-harm
CPT/HCPCS: 36415; 80053; 81003; 81015; 85027; 86593; 87389; 90688; 93005; 93010; G0008

== ENCOUNTER 2018-03-25 12:46 | Inpatient (IN) | payer OTHER ==
[2018-03-25 12:58] VITALS: BMI 31.6
[2018-03-25] MEDS ORDERED: P-EPHED 60MG/TRIPROLIDI 2.5MG TABLET PO PRN (13:24)
[2018-03-25] MEDS ORDERED: LOPERAMIDE HCL 2 MG CAPSULE PO PRN (13:24)
[2018-03-25] MEDS ORDERED: MAGNESIUM CITRATE 300 ML BOTTLE PO PRN (13:24)
[2018-03-25] MEDS ORDERED: MAGNESIUM HYDROX 2400MG/30ML ORAL SUSPENSION 30 ML CUP PO PRN (13:24)
[2018-03-25] MEDS ORDERED: MENTHOL/PHENOL 1 EACH UD MM PRN (13:24)
[2018-03-25] MEDS ORDERED: guaiFENesin/D-METHORPHAN HB 10 ML UNIT-DOSE CUPS PO PRN (13:24)
--- NOTE | 2018-03-25 13:44 | DS ---
[facility] Detox Discharge Summary Admission Date: 03/25/18 Discharge Date: 03/25/18 - History Present History: Alcohol Dependence, Opioid Dependence - Physical Exam Results Vital Signs: Vital Signs Temperature 97.3 F L 03/25/18 12:56 Pulse Rate 87 03/25/18 12:56 Respiratory Rate 17 03/25/18 12:56 Blood Pressure 125/82 03/25/18 12:56 O2 Sat by Pulse Oximetry (%) Pertinent Admission Physical Exam Findings: PATIENT TOLERATED DETOX WELL AND COMPLETED DETOX TODAY. ALERT AND ORIENTED X 3. IN NAD. DENIES SI/HI. MEDICALLY STABLE. PATIENT ACCEPTED REFERRAL TO REHAB AT [facility]. PATIENT ENCOURAGED TO COMPLETE REHAB TO PREVENT RELAPSE. - Treatment Hospital Course: Detox Protocol Followed, Detoxed Safely, Responded well, Discharged Condition Good, Rehab Referral Accepted Patient has Accepted a Rehab Referral to: [facility] - Medication Discharge Medications: Ambulatory Orders Lamotrigine [LaMICtal -] 100 mg PO HS #30 tablet 02/09/17 Ranitidine HCl [Zantac] 150 mg PO BID 02/12/17 Gabapentin [Neurontin -] 300 mg PO TID #90 cap 03/02/17 Quetiapine Fumarate [Seroquel] 50 mg PO HS 03/25/18 - AMA Did Patient Leave Against Medical Advice: No
--- NOTE | 2018-03-25 15:41 | HP ---
[facility] Rehab Assess/Revision - Admission History Admitted to Rehab from: [facility] [place] Date of Admission to Rehab: 03/25/2018 - Vital signs Vital Signs: Vital Signs Period Temp Pulse Resp BP Sys/Glover Pulse Ox Last 24 Hr 97.3 F 87 17 125/82 - Findings Detox History & Physical reviewed: Yes Concur with findings: Yes
--- NOTE | 2018-03-25 15:43 | HP ---
[facility] Rehab Assess/Revision - Vital signs Vital Signs: Vital Signs Period Temp Pulse Resp BP Sys/Glover Pulse Ox Last 24 Hr 97.3 F 87 17 125/82 Inpatient Rehab Admission - Initial Determination Are CD services needed?: Yes Free of communicable disease: Yes Not in need of hospitalization: Yes - Rehab Admission Criteria Previous failed treatment: Yes Poor recovery environment: Yes Comorbidities: Yes Lacks judgement: Yes Patient is meeting Inpatient Rehab admission criteria:: Yes
[2018-03-25] MEDS: IBUPROFEN 400 MG TABLET (FP) PO PRN (16:17)
[2018-03-25] MEDS: THIAMINE HCL 100 MG TABLET (FP) PO SCH (21:11)
[2018-03-25] MEDS: QUEtiapine FUMARATE 50 MG TABLET PO SCH (21:11)
[2018-03-25] MEDS: SULFAMETHOXAZOLE/TRIMETHOPRIM 800MG/160MG D.S. TABLET PO SCH (21:11)
[2018-03-25] MEDS: lamoTRIgine 100 MG TABLET (FP) PO SCH (21:11)
[2018-03-25] MEDS: GABAPENTIN 300 MG CAPSULE (FP) PO SCH (21:12)
[2018-03-25] MEDS: ACETAMINOPHEN 325 MG TABLET (FP) PO PRN (21:14)
[2018-03-26] MEDS: MAG HYDROX/AL HYDROX/SIMETH 30 ML UNIT-DOSE CUP PO PRN ×3 (02:18→21:24)
[2018-03-26] MEDS: GABAPENTIN 300 MG CAPSULE (FP) PO SCH ×3 (06:32→21:20)
[2018-03-26] MEDS: IBUPROFEN 400 MG TABLET (FP) PO PRN ×2 (06:33→19:57)
[2018-03-26] MEDS: PRENATAL VITAMINS W/ FOLIC ACID TABLET (FP) PO SCH (09:19)
[2018-03-26] MEDS: SULFAMETHOXAZOLE/TRIMETHOPRIM 800MG/160MG D.S. TABLET PO SCH ×2 (09:19→21:20)
[2018-03-26] MEDS: ACETAMINOPHEN 325 MG TABLET (FP) PO PRN (09:21)
[2018-03-26] MEDS: hydrOXYzine PAMOATE 25 MG CAPSULE (FP) PO PRN ×2 (13:32→21:23)
[2018-03-26] MEDS: THIAMINE HCL 100 MG TABLET (FP) PO SCH (21:20)
[2018-03-26] MEDS: QUEtiapine FUMARATE 50 MG TABLET PO SCH (21:20)
[2018-03-26] MEDS: lamoTRIgine 100 MG TABLET (FP) PO SCH (21:20)
[2018-03-27] MEDS: GABAPENTIN 300 MG CAPSULE (FP) PO SCH ×3 (06:39→21:26)
[2018-03-27] MEDS: PRENATAL VITAMINS W/ FOLIC ACID TABLET (FP) PO SCH (09:37)
[2018-03-27] MEDS: SULFAMETHOXAZOLE/TRIMETHOPRIM 800MG/160MG D.S. TABLET PO SCH (09:37)
[2018-03-27] MEDS: MAG HYDROX/AL HYDROX/SIMETH 30 ML UNIT-DOSE CUP PO PRN (09:38)
--- NOTE | 2018-03-27 11:58 | HP ---
Psychiatrist Admission - Data Date of interview: 03/27/18 Admission source: [address] [place] [address] Identifying data: This is the second admission to [address] [place] [address] for this 37 yo H mother of 5(youngest 15 yo resides with his father),unemployed,supported by mary [employer]. Medical History: BA,GERD,H/O Cholecystectomy. Psychiatric History: Patient reports first contact with psychiatrist was in 2006 while being in outpatient drug rehabilitation treatment to address depressed mood,anxiety,insomnia.She had her first psychiatric admission due to suicidal attempt (DOD) after several months of her first contact with psychiatrist.patient was hospitalized to [facility] in [place].She was dx with Bipolar disorder.patient reports no more psychiatric hospitalizations.She has poor adherence to outpatient care.patient stopped to see a psychiatricst after her discharge from inpatient rehab in 2016.she restarted Seroquel 50 mg po hs( no response at all since she was on 300 mg before) and Lamictal 100 mg po daily, Gabapentin 300 mg po tid. Physical/Sexual Abuse/Trauma History: denies Vital Signs: Vital Signs - 24 hr 03/27/18 03/27/18 03/27/18 00:30 03:30 06:54 Temperature 98.0 F Pulse Rate 76 Respiratory 16 16 16 Rate Blood Pressure 103/71 Allergies/Adverse Reactions: Allergies Allergy/AdvReac Type Severity Reaction Status Date / Time No Known Allergies Allergy Verified 03/21/18 10:35 Date of last physical exam: 03/21/18 Concur with the findings of this exam: Yes - Substance Abuse/Tx History Hx Alcohol Use: Yes (drinking since 35 yo,vodka 2 pints and 3 beers daily) Hx Substance Use: Yes (cocaine since 2012,$500 daily ) Substance Use Type: Alcohol, Cocaine Hx Substance Use Treatment: Yes (completed this program in Feb 2017) Mental Status Exam - Mental Status Exam Alert and Oriented to: Time, Place, Person Cognitive Function: Grossly Intact Patient Appearance: Well Groomed Mood: Anxious Affect: Mood Congruent, Labile Patient Behavior: Cooperative Speech Pattern: Clear Voice Loudness: Normal Thought Process: Goal Oriented Thought Disorder: Not Present Hallucinations: Denies Suicidal Ideation: Denies Homicidal Ideation: Denies Insight/Judgement: Fair Sleep: Difficulty falling asleep Appetite: Good Muscle strength/Tone: Normal Gait/Station: Normal Psychiatric Findings - Problem List ([place] 1, 2,3) (1) Alcohol dependence Current Visit: Yes Status: Chronic (2) Asthma Current Visit: Yes Status: Chronic (3) Cocaine dependence Current Visit: Yes Status: Chronic (4) GERD (gastroesophageal reflux disease) Current Visit: Yes Status: Chronic (5) Seizure Current Visit: Yes Status: Chronic (6) Substance-induced sleep disorder Current Visit: Yes Status: Chronic (7) Bipolar disorder Current Visit: Yes Status: Acute (8) Hx of migraine headaches Current Visit: Yes Status: Chronic (9) Nicotine dependence Current Visit: Yes Status: Chronic Qualifiers: Nicotine product type: cigarettes Substance use status: uncomplicated Qualified Code(s): F17.210 - Nicotine dependence, cigarettes, uncomplicated - Initial Treatment Plan Initial Treatment Plan: Lamictal 100 mg po his,Neurontin 300 mg po tid,Seroquel 50 mg po hs will be adjusted to 100 mg po hs.Will monitor progress.
[2018-03-27] MEDS: IBUPROFEN 400 MG TABLET (FP) PO PRN ×2 (15:07→21:28)
[2018-03-27] MEDS: hydrOXYzine PAMOATE 25 MG CAPSULE (FP) PO PRN (21:26)
[2018-03-27] MEDS: lamoTRIgine 100 MG TABLET (FP) PO SCH (21:26)
[2018-03-27] MEDS: THIAMINE HCL 100 MG TABLET (FP) PO SCH (21:26)
[2018-03-27] MEDS: QUEtiapine FUMARATE 50 MG TABLET PO SCH (21:26)
[2018-03-27] MEDS: RANITIDINE HCL 150 MG TABLET (FP) PO SCH (21:28)
[2018-03-27] MEDS: BENZOCAINE 20 % GEL TUBE MM PRN (23:12)
[2018-03-28] MEDS: GABAPENTIN 300 MG CAPSULE (FP) PO SCH ×3 (06:17→21:34)
[2018-03-28] MEDS: BENZOCAINE 20 % GEL TUBE MM PRN ×2 (06:23→09:20)
[2018-03-28] MEDS ORDERED: PT OWN MED DRAWER 7, Y5N ONE ×2 (06:24→09:19)
[2018-03-28] MEDS: PRENATAL VITAMINS W/ FOLIC ACID TABLET (FP) PO SCH (09:19)
[2018-03-28] MEDS: RANITIDINE HCL 150 MG TABLET (FP) PO SCH ×2 (09:20→21:34)
[2018-03-28] MEDS: IBUPROFEN 400 MG TABLET (FP) PO PRN (12:32)
[2018-03-28] MEDS ORDERED: MECLIZINE HCL 12.5 MG TABLET PO PRN (13:08)
--- NOTE | 2018-03-28 13:16 | PN ---
S Progress Note Note: Vital Signs Temperature 97.6 F 03/28/18 06:53 Pulse Rate 85 03/28/18 06:53 Respiratory Rate 18 03/28/18 06:53 Blood Pressure 95/60 03/28/18 06:53 O2 Sat by Pulse Oximetry (%) Patient c/o vertigo. Reports hx of seizure about a year ago and went to the emergency at time, since that initial visit to the emergency room, patient reports no follow up with care with her PCP. Patient reports she has had subsequent seizures with last episode one month ago. Reports chronic dental pain in lower molar and poor follow up with dental care. Denies CP, paresthia, SOB or any other pain at this time. Aox3 no distress EENT WNL, + poor dentition, + multiple caries no adventitious breath sounds CN I - XII intact full ROM ambulating in the unit independently vertigo hx seizure dentalgia Plan: increase ibuprofen from 400 to 600mg PRN seizure precautions antivert PRN patient was educated on the importance to follow up with dentist, PCP and neurologist upon discharge, patient verbalize understanding. continue to monitor
[2018-03-28] MEDS: lamoTRIgine 100 MG TABLET (FP) PO SCH (21:34)
[2018-03-28] MEDS: QUEtiapine FUMARATE 50 MG TABLET PO SCH (21:34)
[2018-03-28] MEDS: THIAMINE HCL 100 MG TABLET (FP) PO SCH (21:34)
[2018-03-29] MEDS: GABAPENTIN 300 MG CAPSULE (FP) PO SCH ×3 (06:24→21:32)
[2018-03-29] MEDS ORDERED: PT OWN MED DRAWER 7, Y5N ONE ×3 (08:45→09:54)
[2018-03-29] MEDS: PRENATAL VITAMINS W/ FOLIC ACID TABLET (FP) PO SCH (09:52)
[2018-03-29] MEDS: BENZOCAINE 20 % GEL TUBE MM PRN (09:53)
[2018-03-29] MEDS: RANITIDINE HCL 150 MG TABLET (FP) PO SCH ×2 (09:53→21:32)
--- NOTE | 2018-03-29 14:54 | PN ---
S Progress Note Note: Vital Signs Temperature 98.3 F 03/29/18 14:33 Pulse Rate 99 H 03/29/18 14:33 Respiratory Rate 18 03/29/18 14:33 Blood Pressure 111/75 03/29/18 14:33 O2 Sat by Pulse Oximetry (%) Patient reports felt dizzy and fell this past Tuesday03/25/18, reports hit her right knee during fall. Aox3 no distress no adventitious breath sounds no visible signs of injury Full ROM ambulating in the unit + right knee pain s/p fall Fall Protocol # 1 Patient sen to [facility] for further evaluation as per protocol. Attempted to endorse patient unable to reach provider.
[2018-03-29] MEDS: IBUPROFEN 600 MG TABLET (FP) PO PRN (14:58)
[2018-03-29] MEDS: QUEtiapine FUMARATE 50 MG TABLET PO SCH (21:32)
[2018-03-29] MEDS: hydrOXYzine PAMOATE 25 MG CAPSULE (FP) PO PRN (21:32)
[2018-03-29] MEDS: lamoTRIgine 100 MG TABLET (FP) PO SCH (21:32)
[2018-03-29] MEDS: THIAMINE HCL 100 MG TABLET (FP) PO SCH (21:40)
[2018-03-30] MEDS: GABAPENTIN 300 MG CAPSULE (FP) PO SCH ×3 (06:27→21:10)
[2018-03-30] MEDS: PRENATAL VITAMINS W/ FOLIC ACID TABLET (FP) PO SCH (09:38)
[2018-03-30] MEDS: RANITIDINE HCL 150 MG TABLET (FP) PO SCH ×2 (09:38→21:10)
[2018-03-30] MEDS: IBUPROFEN 600 MG TABLET (FP) PO PRN (13:03)
[2018-03-30] MEDS: BENZOCAINE 20 % GEL TUBE MM PRN (21:10)
[2018-03-30] MEDS: lamoTRIgine 100 MG TABLET (FP) PO SCH (21:10)
[2018-03-30] MEDS: QUEtiapine FUMARATE 50 MG TABLET PO SCH (21:10)
[2018-03-30] MEDS: THIAMINE HCL 100 MG TABLET (FP) PO SCH (21:10)
[2018-03-30] MEDS: MELATONIN 5 MG TABLETS PO PRN (21:11)
[2018-03-30] MEDS: hydrOXYzine PAMOATE 25 MG CAPSULE (FP) PO PRN (21:12)
[2018-03-30] MEDS ORDERED: PT OWN MED DRAWER 7, Y5N ONE (22:49)
[2018-03-31] MEDS: GABAPENTIN 300 MG CAPSULE (FP) PO SCH ×3 (06:26→21:21)
[2018-03-31] MEDS: RANITIDINE HCL 150 MG TABLET (FP) PO SCH ×2 (10:01→21:21)
[2018-03-31] MEDS: PRENATAL VITAMINS W/ FOLIC ACID TABLET (FP) PO SCH (10:01)
--- NOTE | 2018-03-31 10:12 | PN ---
S Progress Note Note: PT C/O FREQUENT URINATION WITH URGENCY. DENIES BURNING, PAIN OR DISCHARGE. REPORTS NOT A NEW SYMPTOM AND ONLY FEELS PAIN "WHEN I HAVE SEX". PT STATES SHE ATTENDS AN ALL INCLUSIVE CLINIC ON [facility] [place]. Vital Signs 03/31/18 03/31/18 03:30 06:48 Temperature 97.6 F Pulse Rate 88 Respiratory 16 16 Rate Blood Pressure 104/69 PLAN:UA TODAY PT INSTRUCTED TO FOLLOW UP WITH HER PMD/[facility] OF [facility] DOCTOR FOR PHYSICAL EXAM/CHECK UP AFTER REHAB.
[2018-03-31 14:53] LABS: URINE APPEARANCE CLEAR; URINE BILIRUBIN NEGATIVE (<2.0 mg/dL); URINE COLOR YELLOW; URINE GLUCOSE (UA) NEGATIVE (NEGATIVE); URINE KETONE NEGATIVE (NEGATIVE); URINE LEUK ESTERASE NEGATIVE (NEGATIVE); URINE NITRITE NEGATIVE (NEGATIVE); URINE PROTEIN NEGATIVE (NEGATIVE); URINE UROBILINOGEN NEGATIVE mg/dL (0.2-1.0)
[2018-03-31] MEDS: hydrOXYzine PAMOATE 25 MG CAPSULE (FP) PO PRN (21:21)
[2018-03-31] MEDS: THIAMINE HCL 100 MG TABLET (FP) PO SCH (21:21)
[2018-03-31] MEDS: lamoTRIgine 100 MG TABLET (FP) PO SCH (21:21)
[2018-03-31] MEDS: QUEtiapine FUMARATE 50 MG TABLET PO SCH (21:21)
[2018-03-31] MEDS: MELATONIN 5 MG TABLETS PO PRN (21:22)
[2018-04-01] MEDS: GABAPENTIN 300 MG CAPSULE (FP) PO SCH ×3 (06:18→21:20)
[2018-04-01] MEDS: PRENATAL VITAMINS W/ FOLIC ACID TABLET (FP) PO SCH (09:45)
[2018-04-01] MEDS: RANITIDINE HCL 150 MG TABLET (FP) PO SCH ×2 (09:45→21:20)
[2018-04-01] MEDS: IBUPROFEN 600 MG TABLET (FP) PO PRN (09:46)
[2018-04-01] MEDS: hydrOXYzine PAMOATE 25 MG CAPSULE (FP) PO PRN (21:20)
[2018-04-01] MEDS: lamoTRIgine 100 MG TABLET (FP) PO SCH (21:20)
[2018-04-01] MEDS: QUEtiapine FUMARATE 50 MG TABLET PO SCH (21:20)
[2018-04-01] MEDS: THIAMINE HCL 100 MG TABLET (FP) PO SCH (21:20)
[2018-04-01] MEDS ORDERED: PT OWN MED DRAWER 7, Y5N ONE (23:03)
[2018-04-02] MEDS ORDERED: PT OWN MED DRAWER 7, Y5N ONE (00:30)
[2018-04-02] MEDS: GABAPENTIN 300 MG CAPSULE (FP) PO SCH ×3 (06:51→21:10)
[2018-04-02] MEDS: RANITIDINE HCL 150 MG TABLET (FP) PO SCH ×2 (09:33→21:10)
[2018-04-02] MEDS: PRENATAL VITAMINS W/ FOLIC ACID TABLET (FP) PO SCH (09:33)
[2018-04-02] MEDS: THIAMINE HCL 100 MG TABLET (FP) PO SCH (21:10)
[2018-04-02] MEDS: hydrOXYzine PAMOATE 25 MG CAPSULE (FP) PO PRN (21:10)
[2018-04-02] MEDS: lamoTRIgine 100 MG TABLET (FP) PO SCH (21:10)
[2018-04-02] MEDS: QUEtiapine FUMARATE 50 MG TABLET PO SCH (21:10)
[2018-04-03] MEDS: GABAPENTIN 300 MG CAPSULE (FP) PO SCH (06:31)
[2018-04-03 07:21] VITALS: BP 107/73; PULSE 90; TEMP 97.9
--- NOTE | 2018-04-03 08:48 | PN ---
Psychiatric Progress Note Vital Signs: Vital Signs Period Temp Pulse Resp BP Sys/Glover Pulse Ox Last 24 Hr 97.9 F 90-91 18-20 107-117/73-78 Date of Session: 04/03/18 Chief Complaint:: Discharge visit HPI: Alcohol,cocaine dependence comorbid with Bipolar disorder. ROS: Significant for BA,GERD,Ovary cysts,removal,Cholecystectomy. Current Medications: Active Medications Generic Name Dose Route Start Last Admin Trade Name Freq PRN Reason Stop Dose Admin Acetaminophen 650 mg 03/25/18 13:24 03/26/18 09:21 Tylenol - PO 650 mg Q4H PRN Administration FEVER Al Hydroxide/Mg Hydroxide 30 ml 03/25/18 13:24 03/27/18 09:38 Mylanta Oral Suspension - PO 30 ml Q6H PRN Administration DYSPEPSIA Benzocaine 1 applic 03/27/18 15:07 03/30/18 21:10 Anbesol - MM 1 applic Q2H PRN Administration FOR TOOTHACHE Eucalyptus/Menthol/Phenol/Sorbitol 1 each 03/25/18 13:24 Cepastat Lozenge - MM Q4H PRN SORE THROAT Gabapentin 300 mg 03/25/18 22:00 04/03/18 06:31 Neurontin - PO 300 mg TID LEWIS Administration Guaifenesin 10 ml 03/25/18 13:24 04/03/18 06:32 Robitussin Dm - PO 10 ml Q6H PRN Administration COUGH Hydroxyzine Pamoate 25 mg 03/25/18 13:24 04/02/18 21:10 Vistaril - PO 25 mg Q4H PRN Administration AGITATION Ibuprofen 600 mg 03/28/18 13:08 04/01/18 09:46 Motrin - PO 600 mg TID PRN Administration Pain Level 4-6 Lamotrigine 100 mg 03/25/18 22:00 04/02/18 21:10 Lamictal - PO 100 mg HS LEWIS Administration Loperamide HCl 4 mg 03/25/18 13:24 Imodium - PO Q6H PRN DIARRHEA Magnesium Citrate 300 ml 03/25/18 13:24 Citroma - PO Q48H PRN CONSTIPATION Magnesium Hydroxide 30 ml 03/25/18 13:24 Milk Of Magnesia - PO DAILY PRN CONSTIPATION Meclizine HCl 12.5 mg 03/28/18 13:08 03/28/18 14:10 Antivert - PO 12.5 mg Q6H PRN Administration VERTIGO Melatonin 5 mg 03/25/18 22:00 03/31/18 21:22 Melatonin PO 5 mg HS PRN Administration INSOMNIA Multivit/Folic Acid/Iron 1 tab 03/26/18 10:00 04/02/18 09:33 Vitamins (Sjr) - PO 1 tab DAILY LEWIS Administration Pseudoephedrine/Triprolidine 1 combo 03/25/18 13:24 04/02/18 13:53 Actifed - PO 1 combo TID PRN Administration NASAL CONGESTION Quetiapine Fumarate 50 mg 03/25/18 22:00 04/02/18 21:10 Seroquel - PO 50 mg HS LEWIS Administration Ranitidine HCl 150 mg 03/27/18 22:00 04/02/18 21:10 Zantac - PO 150 mg BID LEWIS Administration Thiamine HCl 100 mg 03/25/18 22:00 04/02/18 21:10 Vitamin B1 - PO 100 mg HS LEWIS Administration Current Side Effect: No Lab tests ordered: No Lab tests reviewed: Yes Provider note:: Patient completed this program.She has met her treatment goals and will continue to address her issues on outaptient basis at [facility].She reports finding that current mendications:Lamictal 100 mg po hs,Seroquel 100 mg po hs,Nerontin 300 mg po tid. Supportive therapy has been provided focusing on relapse prevention. Patient is stable for discharge today. Total face to face time:: 30 Psychiatric Treatment Plan - Problem List (1) Alcohol dependence Current Visit: Yes (2) Asthma Current Visit: Yes (3) Cocaine dependence Current Visit: Yes (4) GERD (gastroesophageal reflux disease) Current Visit: Yes (5) Seizure Current Visit: Yes (6) Substance-induced sleep disorder Current Visit: Yes (7) Bipolar disorder Current Visit: Yes (8) Hx of migraine headaches Current Visit: Yes (9) Nicotine dependence Current Visit: Yes Qualifiers: Nicotine product type: cigarettes Substance use status: uncomplicated Qualified Code(s): F17.210 - Nicotine dependence, cigarettes, uncomplicated
[2018-04-03] MEDS: RANITIDINE HCL 150 MG TABLET (FP) PO SCH (09:27)
[2018-04-03] MEDS: PRENATAL VITAMINS W/ FOLIC ACID TABLET (FP) PO SCH (09:27)
[2018-04-03] MEDS: hydrOXYzine PAMOATE 25 MG CAPSULE (FP) PO PRN (10:02)
== END 2018-04-03 10:17 | disposition home or self-care (01) | DRG 772 ==
LOC: YASAS 12:46 → Y3E 12:48
PROVIDERS: ADMIT Psychiatry & Neurology Psychiatry; ATTEND Psychiatry & Neurology Psychiatry
PROC: HZ42ZZZ Group Counseling for Substance Abuse Treatment, Cognitive-Behavioral (ICD-10-PCS; principal; 2018-03-25)
DX: F10.20 Alcohol dependence, uncomplicated (principal); F14.20 Cocaine dependence, uncomplicated; F17.210 Nicotine dependence, cigarettes, uncomplicated; F19.282 Other psychoactive substance dependence with psychoactive substance-induced sleep disorder; F31.9 Bipolar disorder, unspecified; G40.909 Epilepsy, unspecified, not intractable, without status epilepticus; J45.909 Unspecified asthma, uncomplicated; K21.9 Gastro-esophageal reflux disease without esophagitis; M25.561 Pain in right knee; R42 Dizziness and giddiness; K08.89 Other specified disorders of teeth and supporting structures; R35.0 Frequency of micturition; R39.15 Urgency of urination; W19.XXXD Unspecified fall, subsequent encounter
CPT/HCPCS: 81003

== ENCOUNTER 2018-03-29 16:48 | Emergency (ER) | payer OTHER ==
[2018-03-29 17:20] VITALS: BP 114/59; PULSE 97; TEMP 98.6; BMI 31.6
--- NOTE | 2018-03-29 17:20 | PDOC ---
Rapid Medical Evaluation Time Seen by Provider: 03/29/18 17:17 Medical Evaluation: Allergies Allergy/AdvReac Type Severity Reaction Status Date / Time No Known Allergies Allergy Verified 03/21/18 10:35 03/29/18 17:18 The patient complains of: fell 5 days ago while at [facility] rehab. pt states able to ambulate but hurts with ambulation, no previous injury, no radiation of pain On brief exam: noted purple echhymotic area to medial aspect of rt knee. no crepitus, no deformity, TTP to medial aspect of patella The patient ordered for: none The patient to proceed to the ED Discharge Disposition - Diagnosis Knee pain - Referrals - Patient Instructions - Post Discharge Activity
--- NOTE | 2018-03-29 18:05 | PDOC ---
History of Present Illness - General Chief Complaint: Pain, Acute Stated Complaint: FALL Time Seen by Provider: 03/29/18 17:17 History Source: Patient Exam Limitations: No Limitations - History of Present Illness Initial Comments: 03/29/18 18:03 c/o pain right knee s/p fall Past History - Past Medical History Allergies/Adverse Reactions: Allergies Allergy/AdvReac Type Severity Reaction Status Date / Time No Known Allergies Allergy Verified 03/29/18 17:20 Home Medications: Ambulatory Orders Lamotrigine [LaMICtal -] 100 mg PO HS #30 tablet 02/09/17 Ranitidine HCl [Zantac] 150 mg PO BID 02/12/17 Gabapentin [Neurontin -] 300 mg PO TID #90 cap 03/02/17 Quetiapine Fumarate [Seroquel] 50 mg PO HS 03/25/18 Anemia: Yes (YEARS AGO WHEN ) Asthma: Yes Cardiac Disorders: No CVA: No COPD: No Diabetes: No GI Disorders: Yes (GERD) Disorders: No HTN: No Hypercholesterolemia: No Kidney Stones: No Seizures: Yes (drugs related) Thyroid Disease: No - Surgical History Abdominal Surgery: No Appendectomy: No Cardiac Surgery: No Cholecystectomy: Yes (lap cholecystectomy in 1993) Lung Surgery: No Neurologic Surgery: No Orthopedic Surgery: No (TUBAL LIGATION AND OVARIAN CYST REMOVAL) - Reproductive History PID: No - Suicide/Smoking/Psychosocial Hx Smoking History: Never smoked Have you smoked in the past 12 months: No Number of Cigarettes Smoked Daily: 3 Information on smoking cessation initiated: No 'Breaking Loose' booklet given: 03/21/18 Hx Alcohol Use: No Drug/Substance Use Hx: No Substance Use Type: Alcohol, Cocaine Hx Substance Use Treatment: Yes (completed this program in Feb 2017) Review of Systems - Review of Systems Able to Perform ROS?: Yes Is the patient limited Bolivian proficient: No Constitutional: No: Symptoms Reported HEENTM: No: Symptoms Reported Respiratory: No: Symptoms reported, Other Cardiac (ROS): No: Symptoms Reported ABD/GI: No: Symptoms Reported : No: Symptoms Reported Musculoskeletal: Yes: Symptoms Reported Integumentary: No: Symptoms Reported *Physical Exam - Vital Signs Last Vital Signs Temp Pulse Resp BP Pulse Ox 98.6 F 97 H 16 114/59 L 100 03/29/18 17:18 03/29/18 17:18 03/29/18 17:18 03/29/18 17:18 03/29/18 17:18 - Physical Exam General Appearance: Yes: Nourished, Appropriately Dressed HEENT: positive: EOMI, SAMUEL Neck: positive: Supple Respiratory/Chest: positive: Lungs Clear, Normal Breath Sounds Extremity: positive: Normal Capillary Refill, Normal Range of Motion, Other ( bruising noted to the right lateral knee from , non tender , has pain when walking). negative: Tender Integumentary: positive: Normal Color, Dry, Warm Neurologic: positive: Fully Oriented, Alert, Normal Mood/Affect, Normal Response , Motor Strength 10/22 Medical Decision Making - Medical Decision Making 03/29/18 18:04 cc: pt fell 5 days ago has continued pain to the right knee, pt currently in rehab at [address] [place] [address] pt ambulating with no distress *DC/Admit/Observation/Transfer Diagnosis at time of Disposition: Knee pain Qualifiers: Chronicity: acute Laterality: right Qualified Code(s): M25.561 - Pain in right knee - Discharge Dispostion Disposition: TRANSFER ACUTE CARE/OTHER HOSP Condition at time of disposition: Good - Referrals Referrals: Stef Green MD [Staff Physician] - - Patient Instructions Additional Instructions: follow with the orthopedist for follow up elevate the knee you can apply warm compresses every 4hrs for 20 minutes to help with pain - Post Discharge Activity
== END 2018-03-29 20:00 | disposition short-term general hospital (02) ==
LOC: JERFT 16:48
DX: M25.561 Pain in right knee (principal); W18.39XA Other fall on same level, initial encounter; Y93.89 Activity, other specified; Y92.89 Other specified places as the place of occurrence of the external cause; F14.921 Cocaine use, unspecified with intoxication delirium; F10.99 Alcohol use, unspecified with unspecified alcohol-induced disorder; Z72.0 Tobacco use
CPT/HCPCS: 73562-TC-RT-FY; 84703; 99281-25